=== PATIENT | female | born 2000 | race Caucasian/White ===

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

== ENCOUNTER 2020-10-16 16:25 | Emergency (ER) | payer SELFPAY ==
[~2020-10-16] VITALS: Ht 168 cm; Wt 79.5 kg
--- NOTE | 2020-10-16 16:36 | ED Abdominal Pain ---
General Chief Complaint: Abdominal/GI Problems Stated Complaint: ABD PAIN;CRAMPING Nursing Triage Note: Patient reports lower abdomen pain. Sepsis Screen: No Definite Risk Source of Information: Patient Exam Limitations: No Limitations History of Present Illness Date Seen by Provider: Oct 16, 2020 Time Seen by Provider: 16:33 Initial Comments To ER with reports of suprapubic abdominal pain and cramping sensation that began last night. The pain is midline and radiates all across the low abdomen. Walking and standing upright worsens the pain. No fevers or chills or nausea or vomiting. No diarrhea. No dysuria. She was seen at [facility] and had a urinalysis and test done she says, she says both of these were normal. She has had some vaginal discharge and she is sexually active. Timing/Duration: 12-24 Hours Severity/Quality: Moderate Location: Suprapubic Radiation: No Radiation Activities at Onset: None Modifying Factors: Worsens With Movement, Worsens With Palpation; Improves With Resting Associated Symptoms: Denies Symptoms Allergies and Home Medications Allergies Uncoded Allergies: PSEUDOEPHEDRINE (Adverse Reaction, Intermediate, 06/28/12) CAN NOT HAVE DUE TO HEART RELATED CONDITION Home Medications Aspirin 81 Mg Chew, 81 MG PO DAILY, (Reported) Cefdinir 300 Mg Capsule, 300 MG PO BID Prescribed by: PATRICIA MIRAMONTES on 01/01/18420 Methylprednisolone 4 Mg Tab.ds.pk, 4 MG PO UD Prescribed by: PATRICIA MIRAMNOTES on 01/01/18420 Metronidazole 500 Mg Tablet, 500 MG PO BID Prescribed by: VICENTE DING on 10/16/20 1757 Patient Home Medication List Home Medication List Reviewed: Yes Review of Systems Review of Systems Constitutional: see HPI; No chills, No fever EENTM: No Symptoms Reported Respiratory: No Symptoms Reported Cardiovascular: See HPI Gastrointestinal: See HPI, Abdominal Pain; Denies Constipated, Denies Diarrhea, Denies Nausea Genitourinary: No Symptoms Reported Musculoskeletal: no symptoms reported Skin: no symptoms reported Psychiatric/Neurological: No Symptoms Reported Endocrine: No Symptoms Reported Hematologic/Lymphatic: No Symptoms Reported Past Aavulpw-Aqqirn-Oomqch Hx Patient Social History Alcohol Use: Denies Use Recreational Drug Use: No 2nd Hand Smoke Exposure: No Recent Foreign Travel: No Contact w/Someone Who Travel: No Recent Infectious Disease Expo: No Recent Hopitalizations: No Immunizations Up To Date Tetanus Booster (TDap): Less than 5yrs PED Vaccines UTD: Yes Date of Pneumonia Vaccine: Jun 08, 2011 Seasonal Allergies Seasonal Allergies: Yes Past Medical History Surgeries: Yes (CARDIAC SURGERY X 2 FOR REPAIR OF TETRALOGY OF FALLOT INFANT; BMT'S) Cardiac, Ear Surgery Respiratory: No 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 0.2oz. 67.479211ns; 28.00 BMI Method:Stated General Appearance: WD/WN, no apparent distress HEENT: PERRL/EOMI, normal ENT inspection Respiratory: no respiratory distress, no accessory muscle use Gastrointestinal: normal bowel sounds, soft, tenderness Extremities: normal range of motion, non-tender Neurologic/Psychiatric: alert, normal mood/affect, oriented x 3 Skin: normal color, warm/dry Progress/Results/Core Measures Results/Orders Lab Results Laboratory Tests Test 10/16/20 16:30 10/16/20 16:49 10/16/20 17:57 Range/Units White Blood Count 13.3 H 4.3-11.0 10^3/uL Red Blood Count 5.36 H 3.80-5.11 10^6/uL Hemoglobin 14.0 11.5-16.0 g/dL Hematocrit 44 35-52 % Mean Corpuscular Volume 83 80-99 fL Mean Corpuscular Hemoglobin 26 25-34 pg Mean Corpuscular Hemoglobin Concent 32 32-36 g/dL Red Cell Distribution Width 14.1 10.0-14.5 % Platelet Count 325 130-400 10^3/uL Mean Platelet Volume 11.6 9.0-12.2 fL Immature Granulocyte % (Auto) 0 % Neutrophils (%) (Auto) 78 H 42-75 % Lymphocytes (%) (Auto) 10 L 12-44 % Monocytes (%) (Auto) 9 0-12 % Eosinophils (%) (Auto) 2 0-10 % Basophils (%) (Auto) 1 0-10 % Neutrophils # (Auto) 10.4 H 1.8-7.8 10^3/uL Lymphocytes # (Auto) 1.3 1.0-4.0 10^3/uL Monocytes # (Auto) 1.2 H 0.0-1.0 10^3/uL Eosinophils # (Auto) 0.3 0.0-0.3 10^3/uL Basophils # (Auto) 0.1 0.0-0.1 10^3/uL Immature Granulocyte # (Auto) 0.0 0.0-0.1 10^3/uL Sodium Level 135 135-145 MMOL/L Potassium Level 4.5 3.6-5.0 MMOL/L Chloride Level 103 98-107 MMOL/L Carbon Dioxide Level 19 L 21-32 MMOL/L Anion Gap 13 5-14 MMOL/L Blood Urea Nitrogen 10 7-18 MG/DL Creatinine 0.76 0.60-1.30 MG/DL Estimat Glomerular Filtration Rate > 60 BUN/Creatinine Ratio 13 Glucose Level 100 70-105 MG/DL Calcium Level 8.6 8.5-10.1 MG/DL Corrected Calcium 8.4 L 8.5-10.1 MG/DL Total Bilirubin 0.7 0.1-1.0 MG/DL Aspartate Amino Transf (AST/SGOT) 37 H 5-34 U/L Alanine Aminotransferase (ALT/SGPT) 22 0-55 U/L Alkaline Phosphatase 87 40-136 U/L C-Reactive Protein High Sensitivity 0.39 0.00-0.50 MG/DL Total Protein 8.1 6.4-8.2 GM/DL Albumin 4.2 3.2-4.5 GM/DL Serum Test, Qualitative NEGATIVE NEGATIVE Urine Color YELLOW Urine Clarity CLEAR Urine pH 6.5 5-9 Urine Specific [place] 1.015 L 1.016-1.022 Urine Protein NEGATIVE NEGATIVE Urine Glucose (UA) NEGATIVE NEGATIVE Urine Ketones NEGATIVE NEGATIVE Urine Nitrite NEGATIVE NEGATIVE Urine Bilirubin NEGATIVE NEGATIVE Urine Urobilinogen 1.0 < = 1.0 MG/DL Urine Leukocyte Esterase NEGATIVE NEGATIVE Urine RBC (Auto) NEGATIVE NEGATIVE Urine RBC NONE /HPF Urine WBC RARE /HPF Urine Squamous Epithelial Cells 5-10 /HPF Urine Crystals NONE /LPF Urine Bacteria TRACE /HPF Urine Casts NONE /LPF Urine Mucus NEGATIVE /LPF Urine Culture Indicated NO Micro Results Microbiology 10/16/20 Wet Prep - Final, Complete My Orders Orders - VICENTE DING APRN Cbc With Automated Diff (10/16/20 16:31) Comprehensive Metabolic Panel (10/16/20 16:31) Hs C Reactive Protein (10/16/20 16:31) Ed Iv/Invasive Line Start (10/16/20 16:31) Hcg,Qualitative Serum (10/16/20 16:31) Ct Abd/Pelv W (Appendicitis) (10/16/20 16:31) Ua Culture If Indicated (10/16/20 16:31) Ketorolac Injection (Toradol Injection) (10/16/20 16:45) Chlamydia Trachomatis Swab (10/16/20 16:31) Neisseria Gonorrhea Swab (10/16/20 16:31) Wet Prep (10/16/20 16:31) Iohexol Injection (Omnipaque 350 Mg/Ml 1 (10/16/20 17:00) Received Contrast (Hold Metformin- Contr (10/16/20 17:00) Ns (Ivpb) (Sodium Chloride 0.9% Ivpb Bag (10/16/20 17:00) Ceftriaxone For Iv Use (Rocephin For I (10/16/20 18:00) Azithromycin Tablet (Zithromax Tablet) (10/16/20 18:00) Rx-Hydrocodone/Apap 5-325 Mg (Rx-Vicodin (10/16/20 18:00) Gamma Glutamyl Transpeptidase (10/16/20 17:51) Protime With Inr (10/16/20 17:51) Liver Panel (10/16/20 17:51) Medications Given in ED Current Medications Medications Dose Ordered Sig/Jadiel Route Start Time Stop Time Status Last Admin Dose Admin Acetaminophen/ Hydrocodone Bitart 1 ea Q4H PRN PO 10/16/20 18:00 10/16/20 17:58 1 EA Ceftriaxone Sodium 1000 mg/ Sterile Water 10 ml @ 200 mls/hr ONCE ONCE IV 10/16/20 18:00 10/16/20 18:02 10/16/20 17:58 200 MLS/HR Iohexol 100 ml ONCE ONCE IV 10/16/20 17:00 10/16/20 17:01 DC 10/16/20 17:20 100 ML Ketorolac Tromethamine 15 mg ONCE ONCE IVP 10/16/20 16:45 10/16/20 16:46 DC 10/16/20 16:52 15 MG Sodium Chloride 100 ml ONCE ONCE IV 10/16/20 17:00 10/16/20 17:01 DC 10/16/20 17:20 80 ML Vital Signs/I&O 10/16/20 16:29 Temp 36.8 Pulse 99 Resp 18 B/P (MAP) 135/98 (110) Pulse Ox 99 Blood Pressure Mean: 110 Departure Communication (Admissions) NAME: EVANS [facility] REC#: [id number] PT STATUS: REG ER : 2000 PHYSICIAN: VICENTE DING NATUROPATHIC ONCOLOGY PROVIDER ADMIT DATE: 10/16/20/ER Draft Date of Exam:10/16/20 CT ABD/PELV W (APPENDICITIS) PROCEDURE: CT abdomen and pelvis with contrast, rule out appendicitis. TECHNIQUE: Multiple contiguous axial images were obtained through the abdomen and pelvis after the administration of intravenous contrast. All CT scans use one or more of the following dose optimizing techniques: automated exposure control, MA and/or KvP adjustment based on patient size and exam type or iterative reconstruction. INDICATION: Suprapubic pain. COMPARISON: No relevant comparison. FINDINGS: The appendix is well-visualized directed medially off the caudal pole of the cecum. It appears normal. There is no appendicitis. There is no bowel or urinary tract obstruction. There is a simple cyst in the right renal midpole. The kidneys are unobstructed, nonacute and otherwise normal. There is a right ovarian follicular cyst of 2 cm, likely physiologic. The urinary bladder has an unremarkable appearance. There is no ascites, abscess, hematoma or acute fluid collection. There is no pneumatosis or free air. The spleen is within the upper limits of normal for size and appears nonfocal. The liver has an abnormal appearance with some nodularity and undulation of its contour as well as features of periportal edema. Cirrhosis and hepatitis could not be excluded. Correlate with liver function studies. We note normal enhancement of the intrahepatic and extrahepatic portal veins, however, directional flow cannot be addressed at CT. The pancreas is unremarkable. The patient's lung bases are unremarkable. There is no bile duct dilatation. No discrete liver mass. We note azygos and hemiazygos veins extending into the upper abdomen with a patent cava. No basilar pleural fluid. IMPRESSION: 1. Normal appendix with unremarkable unobstructed urinary tracts and a likely physiologic right adnexal cyst with no acute adnexal pathology. 2. Abnormal appearance of the liver, its morphology raising the question of cirrhosis. The features of periportal edema can be seen in the setting of hepatitis. 3. No ascites and nonfocal normal size spleen. Dictated on workstation # [id number] Dict: 10/16/20 173 Trans: 10/16/201740 [facility] [id number] Interpreted by: JONATHAN ANDERS Electronically signed by: Impression Primary Impression: Abnormal CT of liver Additional Impressions: Pelvic pain Bacterial vaginosis Disposition: HOME, SELF-CARE Condition: Stable Departure-Patient Inst. Decision time for Depature: 17:45 Referrals: [facility] (PCP) Primary Care Physician ZAHIDA ARREDONDO APRN (Family) Primary Care Physician Patient Instructions: No Instuctions Given Add. Discharge Instructions: 1. See Mark Mc at [facility] next week on Monday at 10:40 am to obtain ultrasound of the liver to help further evaluate this abnormal appearance of the liver seen on CT. In the meantime take the antibiotics as directed for the pelvic infection. Return to ER for any worsening. Scripts Metronidazole (Metronidazole) 500 Mg Tablet 500 MG PO BID, #14 TAB 0 Refills Prov: VICENTE DING APRN 10/16/20 Copy Copies To 1: BAILEY PATEL PETER J APRN Oct 16, 2020 16:36
[2020-10-16 16:43] LABS: BASOPHILS # (AUTO) 0.1 10^3/uL (0.0-0.1); BASOPHILS % (AUTO) 1 % (0-10); EOSINOPHILS # (AUTO) 0.3 10^3/uL (0.0-0.3); EOSINOPHILS % (AUTO) 2 % (0-10); HEMATOCRIT 44 % (35-52); LYMPHOCYTES # (AUTO) 1.3 10^3/uL (1.0-4.0); LYMPHOCYTES % (AUTO) 10 % (12-44); MEAN CORPUSCULAR HEMOGLOBIN 26 pg (25-34); MEAN CORPUSCULAR HGB CONC 32 g/dL (32-36); MEAN CORPUSCULAR VOLUME 83 fL (80-99); MEAN PLATELET VOLUME 11.6 fL (9.0-12.2); MONOCYTES # (AUTO) 1.2 10^3/uL (0.0-1.0); MONOCYTES % (AUTO) 9 % (0-12); NEUTROPHILS # (AUTO) 10.4 10^3/uL (1.8-7.8); NEUTROPHILS % (AUTO) 78 % (42-75); PLATELET COUNT 325 10^3/uL (130-400); WHITE BLOOD COUNT 13.3 10^3/uL (4.3-11.0)
[2020-10-16] MEDS ORDERED: KETOROLAC 30 MG/ML VIAL IVP ONE (16:45)
[2020-10-16 16:54] LABS: ALBUMIN 4.2 GM/DL (3.2-4.5); CHLORIDE 103 MMOL/L (98-107); POTASSIUM 4.5 MMOL/L (3.6-5.0); SODIUM 135 MMOL/L (135-145)
[2020-10-16 16:56] LABS: CALCIUM 8.6 MG/DL (8.5-10.1)
[2020-10-16 16:57] LABS: GLUCOSE 100 MG/DL (70-105); TOTAL PROTEIN 8.1 GM/DL (6.4-8.2)
[2020-10-16 16:58] LABS: BILIRUBIN,URINE NEGATIVE (NEGATIVE); CLARITY,URINE CLEAR; COLOR,URINE YELLOW; GLUCOSE, URINE (UA) NEGATIVE (NEGATIVE); KETONES,URINE NEGATIVE (NEGATIVE); LEUKOCYTE ESTERASE ,URINE NEGATIVE (NEGATIVE); NITRITE,URINE NEGATIVE (NEGATIVE); PH,URINE 6.5 (5-9); PROTEIN,URINE NEGATIVE (NEGATIVE)
[2020-10-16 16:58] LABS: CARBON DIOXIDE 19 MMOL/L (21-32)
[2020-10-16 16:59] LABS: BILIRUBIN,TOTAL 0.7 MG/DL (0.1-1.0)
[2020-10-16 17:00] LABS: ALKALINE PHOSPHATASE 87 U/L (40-136); CREATININE SERUM 0.76 MG/DL (0.60-1.30); GFR ESTIMATED > 60
[2020-10-16] MEDS ORDERED: HOLD METFORMIN - RECEIVED CONTRAST 20 ML VIAL IV SCH (17:00)
[2020-10-16] MEDS ORDERED: IOHEXOL 350 MG/ML 100 ML (OMNIPAQUE 350) VIAL IV ONE (17:00)
[2020-10-16] MEDS ORDERED: NS 100 ML (IVPB) BAG IV ONE (17:00)
[2020-10-16 17:02] LABS: BUN/CREATININE RATIO 13
[2020-10-16 17:03] LABS: ALANINE AMINOTRANSFERASE 22 U/L (0-55)
[2020-10-16 17:08] LABS: BACTERIA,URINE TRACE /HPF; WBC,URINE RARE /HPF
--- NOTE | 2020-10-16 17:42 | Diagnostic Imaging Report ---
PROCEDURE: CT abdomen and pelvis with contrast, rule out appendicitis. TECHNIQUE: Multiple contiguous axial images were obtained through the abdomen and pelvis after the administration of intravenous contrast. All CT scans use one or more of the following dose optimizing techniques: automated exposure control, MA and/or KvP adjustment based on patient size and exam type or iterative reconstruction. INDICATION: Suprapubic pain. COMPARISON: No relevant comparison. FINDINGS: The appendix is well-visualized directed medially off the caudal pole of the cecum. It appears normal. There is no appendicitis. There is no bowel or urinary tract obstruction. There is a simple cyst in the right renal midpole. The kidneys are unobstructed, nonacute and otherwise normal. There is a right ovarian follicular cyst of 2 cm, likely physiologic. The urinary bladder has an unremarkable appearance. There is no ascites, abscess, hematoma or acute fluid collection. There is no pneumatosis or free air. The spleen is within the upper limits of normal for size and appears nonfocal. The liver has an abnormal appearance with some nodularity and undulation of its contour as well as features of periportal edema. Cirrhosis and hepatitis could not be excluded. Correlate with liver function studies. We note normal enhancement of the intrahepatic and extrahepatic portal veins, however, directional flow cannot be addressed at CT. The pancreas is unremarkable. The patient's lung bases are unremarkable. There is no bile duct dilatation. No discrete liver mass. We note azygos and hemiazygos veins extending into the upper abdomen with a patent cava. No basilar pleural fluid. IMPRESSION: 1. Normal appendix with unremarkable unobstructed urinary tracts and a likely physiologic right adnexal cyst with no acute adnexal pathology. 2. Abnormal appearance of the liver, its morphology raising the question of cirrhosis. The features of periportal edema can be seen in the setting of hepatitis. 3. No ascites and nonfocal normal size spleen. Dictated by: Dictated on workstation # [id number]
[2020-10-16] MEDS ORDERED: METR-145 PO (17:49)
[2020-10-16] MEDS ORDERED: cefTRIAXone FOR IV USE 1,000 MG in WATER (STERILE) FOR INJECTION 10 ML IV ONE (18:00)
[2020-10-16] MEDS ORDERED: AZITHROMYCIN 250 MG TAB (ZITHROMAX) PO SCH (18:00)
[2020-10-16] MEDS ORDERED: RX-HYDROCODONE/APAP 5/325 MG #4 TAB PK PO PRN (18:00)
[2020-10-16 18:06] VITALS: BP 135/98
[2020-10-16 18:13] LABS: INR 1.3 (0.8-1.4); PROTHROMBIN TIME PATIENT 16.3 SEC (12.2-14.7)
[2020-10-16 18:18] LABS: ALBUMIN 4.1 GM/DL (3.2-4.5)
[2020-10-16 18:21] LABS: TOTAL PROTEIN 7.1 GM/DL (6.4-8.2)
[2020-10-16 18:23] LABS: BILIRUBIN,TOTAL 0.6 MG/DL (0.1-1.0)
[2020-10-16 18:26] LABS: BILIRUBIN,DIRECT 0.3 MG/DL (0.0-0.3); BILIRUBIN,INDIRECT 0.3 MG/DL
== END 2020-10-16 18:05 | disposition home or self-care (01) ==
LOC: EDUNIT# 16:25 → ER 16:27
DX: R10.2 Pelvic and perineal pain (principal); N76.0 Acute vaginitis; R93.2 Abnormal findings on diagnostic imaging of liver and biliary tract; Z88.8 Allergy status to other drugs, medicaments and biological substances; Z79.52 Long term (current) use of systemic steroids; Z79.82 Long term (current) use of aspirin
CPT/HCPCS: 36415; 74177; 80053; 80076; 81000; 82977; 84703; 85025; 85610; 86141; 87210; 87491; 87591

== ENCOUNTER 2021-09-28 14:03 | Emergency (ER) | payer OTHER ==
[~2021-09-28] VITALS: Ht 167 cm; Wt 74.0 kg
[~2021-09-28 14:03] MED LIST changes: +METR-145 PO
[2021-09-28 14:10] VITALS: BP 143/92
[2021-09-28] MEDS ORDERED: PRD50T PO (14:26)
--- NOTE | 2021-09-28 14:26 | ED General ---
General Chief Complaint: Bite-Animal/Human/Insect Stated Complaint: ALLERGIC REACTION BEE STING Nursing Triage Note: ARRIVED VIA AMB WITH COMPLAINTS OF A BEE STING TO RIGHT HAND WHILE AT WORK. STATES SHE IMMEDIATELY BECAME FLUSHED AND HAD A HARD TIME BREATHING. 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 Source of Information: Patient Exam Limitations: No Limitations History of Present Illness Date Seen by Provider: Sep 28, 2021 Time Seen by Provider: 14:22 Initial Comments Patient is a 21-year-old female who presents ED with allergic reaction and bee sting. Patient states around 30 minutes ago she was stung by a bee at work. She states she was stung with the right hand with localized redness. Started having difficulty breathing. Patient states her work gave her 25 mg of Benadryl. She states that she did feel anxious and the breathing appears to be improving some. Denies of any wheezing, abdominal pain, vomiting, diarrhea, headache, dizziness. She reports localized pain and redness to her right hand. No history of bee stings in the past. Allergies and Home Medications Allergies Uncoded Allergies: PSEUDOEPHEDRINE (Adverse Reaction, Intermediate, 06/28/12) CAN NOT HAVE DUE TO HEART RELATED CONDITION Patient Home Medication List Home Medication List Reviewed: Yes Aspirin (Aspirin 81 Mg Chew Tab) 81 Mg Chew, 81 MG PO DAILY, (Reported) Entered as Reported by: HERBIE COOLEY on 05/31/11 1900 Cefdinir (Cefdinir) 300 Mg Capsule, 300 MG PO BID Prescribed by: PATRICIA MIRAMONTES on 01/01/18 042 Methylprednisolone (Medrol) 4 Mg Tab.ds.pk, 4 MG PO UD Prescribed by: PATRICIA MIRAMONTES on 01/01/18420 Metronidazole (Metronidazole) 500 Mg Tablet, 500 MG PO BID Prescribed by: VICENTE DING on 10/16/20 1749 Norgestimate-Ethinyl Estradiol (Mononessa 28 Tablet) 1 Each Tablet, (Reported) Entered as Reported by: ARTIS ORTIZ on 01/01/18 0258 Prednisone (Prednisone) 50 Mg Tab, 50 MG PO DAILY Prescribed by: YONG DONOHUE on 09/28/21 1426 Review of Systems Review of Systems Constitutional: No see HPI, No chills, No diaphoresis, No dizziness, No fever EENTM: No hearing loss, No ear pain Respiratory: No cough, No dyspnea on exertion, No hemoptysis, No orthopnea, No phlegm; short of breath Gastrointestinal: No abdominal pain, No constipation, No diarrhea, No dysphagia Skin: change in color, rash Psychiatric/Neurological: Denies See HPI, Denies Anxiety All Other Systems Reviewed Negative Unless Noted: Yes Past Rstbosh-Seqspp-Gfqetf Hx Patient Social History Smoking Status: Never a Smoker Substance use?: No Alcohol Use?: No Immunizations Up To Date Tetanus Booster (TDap): Less than 5yrs PED Vaccines UTD: Yes Seasonal Allergies Seasonal Allergies: Yes Past Medical History Surgeries: Yes (CARDIAC SURGERY X 2 FOR REPAIR OF TETRALOGY OF FALLOT INFANT; BMT'S) Cardiac, Ear Surgery Respiratory: No 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 0.2oz. [id number]; 26.00 BMI Method:Stated General Appearance: No Apparent Distress, WD/WN Eyes: Bilateral Eye Normal Inspection, Bilateral Eye PERRL, Bilateral Eye EOMI HEENT: PERRL/EOMI, TMs Normal, Normal ENT Inspection, Pharynx Normal Neck: Full Range of Motion, Normal Inspection, Non Tender Respiratory: Chest Non Tender, Lungs Clear, Normal Breath Sounds, No Accessory Muscle Use, No Respiratory Distress Cardiovascular: Regular Rate, Rhythm, No Edema, No Gallop, No JVD Gastrointestinal: No Organomegaly, No Pulsatile Mass, Non Tender Back: Normal Inspection, No CVA Tenderness Skin: Other (Localized erythema to right dorsal hand. Mild swelling. No fluctuant mass.) Progress/Results/Core Measures Suspected Sepsis SIRS Temperature: Pulse: 98 Respiratory Rate: 16 Blood Pressure 143 /92 Mean: 109 Results/Orders My Orders Orders - ANTON GE Prednisone Tablet (Deltasone Tablet) (09/28/21 14:30) Famotidine Tablet (Pepcid Tablet) (09/28/21 14:30) Medications Given in ED Current Medications Medications Dose Ordered Sig/Jadiel Route Start Time Stop Time Status Last Admin Dose Admin Famotidine 40 mg ONCE ONCE PO 09/28/21 14:30 09/28/21 14:31 DC 09/28/21 14:25 40 MG Prednisone 50 mg ONCE ONCE PO 09/28/21 14:30 09/28/21 14:31 DC 09/28/21 14:26 50 MG Vital Signs/I&O 09/28/21 09/28/21 14:10 14:54 Temp 36.3 Pulse 98 Resp 16 B/P (MAP) 143/92 (109) Pulse Ox 95 95 O2 Delivery Room Air Room Air Capillary Refill : Less Than 3 Seconds Blood Pressure Mean: 109 Departure Communication (Admissions) Patient appears well and nontoxic. Localized sting to right hand. Does not appear cellulitic. Lung sounds clear bilateral. No stridor, wheezing. Vital signs stable. Was given dose of prednisone and Pepcid. She took Benadryl right before arrival. No evidence of anaphylaxis. Patient was observed here in the ED. Will discharge with prednisone. She has Benadryl at home Impression Primary Impression: Bee sting Disposition: 01 HOME, SELF-CARE Condition: Improved Departure-Patient Inst. Decision time for Depature: 14:24 Referrals: [facility] [place] Primary Care Physician ZAHIDA ARREDONDO APRN (Family) Primary Care Physician Patient Instructions: Insect Bites and Stings (DC) Add. Discharge Instructions: Recommend cool compresses to the right hand. Recommend Benadryl 25 mg every 6-8 hours until rash improves. Finish prednisone. If worsening symptoms return back to ED for further evaluation. All discharge instructions reviewed with patient and/or family. Voiced u nderstanding. Scripts Prednisone (Prednisone) 50 Mg Tab 50 MG PO DAILY for 4 Days, #4 TAB Prov: ANTON GE 09/28/21 ANTON GE Sep 28, 2021 14:26
[2021-09-28] MEDS ORDERED: FAMOTIDINE 20 MG (PEPCID) TABLET PO ONE (14:30)
[2021-09-28] MEDS ORDERED: predniSONE 20 MG TAB PO ONE (14:30)
== END 2021-09-28 14:54 | disposition home or self-care (01) ==
LOC: EDUNIT# 14:03 → ER 14:05
DX: T63.441A Toxic effect of venom of bees, accidental (unintentional), initial encounter (principal); Z79.82 Long term (current) use of aspirin
CPT/HCPCS: 99283

== ENCOUNTER 2022-02-04 12:16 | Emergency (ER) | payer BC, OTHER ==
[~2022-02-04] VITALS: Ht 167.7 cm; Wt 74.8 kg
[~2022-02-04 12:16] MED LIST changes: +PRD50T PO
[2022-02-04] MEDS ORDERED: LORazepam 0.5 MG (ATIVAN) TABLET PO ONE (13:00)
--- NOTE | 2022-02-04 13:11 | ED General ---
General Chief Complaint: Dizziness/Syncope Stated Complaint: LIGHTHEADED Source of Information: Patient Exam Limitations: No Limitations (VICENTE DING APRN) History of Present Illness Date Seen by Provider: Feb 04, 2022 Time Seen by Provider: 13:09 Initial Comments To ER by private vehicle with reports of sudden onset of jitteriness, anxiety, chest pain, lightheaded that occurred just prior to arrival while at [employer] shopping. She has had some nausea and not feeling quite right for a couple of days. No fevers chills or shortness of breath. She is on a baby aspirin daily. She has a history of tetralogy of Fallot s/p surgery x2. She takes vistaril for anxiety daily. Timing/Duration: 1-2 Days Severity: Moderate Associated Systoms: Nausea/Vomiting (VICENTE DING APRN) Allergies and Home Medications Allergies Uncoded Allergies: PSEUDOEPHEDRINE (Adverse Reaction, Intermediate, 06/28/12) CAN NOT HAVE DUE TO HEART RELATED CONDITION Patient Home Medication List Home Medication List Reviewed: Yes (VICENTE DING APRN) Aspirin (Aspirin 81 Mg Chew Tab) 81 Mg Chew, 81 MG PO DAILY, (Reported) Entered as Reported by: HERBIE COOLEY on 05/31/11 1900 Cefdinir (Cefdinir) 300 Mg Capsule, 300 MG PO BID Prescribed by: PATRICIA MIRAMONTES on 01/01/18420 Escitalopram Oxalate (Lexapro) 10 Mg Tablet, 10 MG PO DAILY Prescribed by: VICENTE DING on 02/04/22 1358 Last Action: New Order Methylprednisolone (Medrol) 4 Mg Tab.ds.pk, 4 MG PO UD Prescribed by: PATRICIA MIRAMONTES on 01/01/18 042 Metronidazole (Metronidazole) 500 Mg Tablet, 500 MG PO BID Prescribed by: VICENTE DNIG on 10/16/20 1749 Norgestimate-Ethinyl Estradiol (Mononessa 28 Tablet) 1 Each Tablet, (Reported) Entered as Reported by: ARTIS ORTIZ on 01/01/18 0258 Prednisone (Prednisone) 50 Mg Tab, 50 MG PO DAILY Prescribed by: YONG DONOHUE on 09/28/21 1426 Review of Systems Review of Systems Constitutional: see HPI EENTM: see HPI Respiratory: no symptoms reported Cardiovascular: no symptoms reported Genitourinary: no symptoms reported Musculoskeletal: no symptoms reported Skin: no symptoms reported Psychiatric/Neurological: See HPI, Anxiety Hematologic/Lymphatic: No Symptoms Reported (VICENTE DING APRN) Past Pjyvpda-Kkoefx-Vsuvmy Hx Immunizations Up To Date Tetanus Booster (TDap): Less than 5yrs PED Vaccines UTD: Yes (VICENTE DING APRN) Seasonal Allergies Seasonal Allergies: Yes (VICENTE DING APRN) Past Medical History Surgeries: Yes (CARDIAC SURGERY X 2 FOR REPAIR OF TETRALOGY OF FALLOT INFANT; BMT'S) Cardiac, Ear Surgery Respiratory: No Cardiac: Yes (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) Congenital Heart Disease Neurological: No Reproductive Disorders: No Genitourinary: No Gastrointestinal: Yes Chronic Constipation Musculoskeletal: No Endocrine: No HEENT: Yes (S/P BMT'S) Chronic Ear Infection Cancer: No Psychosocial: No Integumentary: No Blood Disorders: No (VICENTE DING APRN) Family Medical History No Pertinent Family Hx (VICENTE DING APRN) Physical Exam Vital Signs Vital Signs - First Documented 02/04/22 02/04/22 12:52 14:03 Temp 36.0 Pulse 93 Resp 18 B/P (MAP) 119/82 (94) Pulse Ox 100 O2 Delivery Room Air (DAVID GALLO MD) Vital Signs Capillary Refill : (VICENTE DING APRN) Height, Weight, BMI Height: 5'5.00" Weight: 148lbs. 0.2oz. [id number]; 26.00 BMI Method:Stated General Appearance: No Apparent Distress, WD/WN Eyes: Bilateral Eye Normal Inspection, Bilateral Eye PERRL, Bilateral Eye EOMI Neck: Full Range of Motion, Normal Inspection Respiratory: No Accessory Muscle Use, No Respiratory Distress Cardiovascular: Regular Rate, Rhythm, Normal Peripheral Pulses Gastrointestinal: Normal Bowel Sounds, Non Tender, Soft Extremity: Normal Capillary Refill, Normal Inspection Neurologic/Psychiatric: Alert, Oriented x3 Skin: Normal Color, Warm/Dry (VICENTE DING APRN) Progress/Results/Core Measures Suspected Sepsis SIRS Temperature: Pulse: Respiratory Rate: Laboratory Tests 02/04/22 13:07: White Blood Count 8.9 Blood Pressure / Mean: Laboratory Tests 02/04/22 13:07: Creatinine 0.79, Platelet Count 220, Total Bilirubin 1.0 (VICENTE DING APRN) Results/Orders Lab Results Laboratory Tests Test 02/04/22 13:07 Range/Units White Blood Count 8.9 4.3-11.0 10^3/uL Red Blood Count 6.01 H 3.80-5.11 10^6/uL Hemoglobin 15.6 11.5-16.0 g/dL Hematocrit 48 35-52 % Mean Corpuscular Volume 80 80-99 fL Mean Corpuscular Hemoglobin 26 25-34 pg Mean Corpuscular Hemoglobin Concent 32 32-36 g/dL Red Cell Distribution Width 15.0 H 10.0-14.5 % Platelet Count 220 130-400 10^3/uL Mean Platelet Volume 10.5 9.0-12.2 fL Immature Granulocyte % (Auto) 0 % Neutrophils (%) (Auto) 78 H 42-75 % Lymphocytes (%) (Auto) 11 L 12-44 % Monocytes (%) (Auto) 8 0-12 % Eosinophils (%) (Auto) 3 0-10 % Basophils (%) (Auto) 1 0-10 % Neutrophils # (Auto) 6.9 1.8-7.8 10^3/uL Lymphocytes # (Auto) 1.0 1.0-4.0 10^3/uL Monocytes # (Auto) 0.7 0.0-1.0 10^3/uL Eosinophils # (Auto) 0.3 0.0-0.3 10^3/uL Basophils # (Auto) 0.1 0.0-0.1 10^3/uL Immature Granulocyte # (Auto) 0.0 0.0-0.1 10^3/uL Urine Color YELLOW Urine Clarity CLEAR Urine pH 7.0 5-9 Urine Specific [place] <=1.005 1.016-1.022 Urine Protein NEGATIVE NEGATIVE Urine Glucose (UA) NEGATIVE NEGATIVE Urine Ketones NEGATIVE NEGATIVE Urine Nitrite NEGATIVE NEGATIVE Urine Bilirubin NEGATIVE NEGATIVE Urine Urobilinogen 0.2 < = 1.0 MG/DL Urine Leukocyte Esterase NEGATIVE NEGATIVE Urine RBC (Auto) NEGATIVE NEGATIVE Urine RBC NONE /HPF Urine WBC NONE /HPF Urine Squamous Epithelial Cells 0-2 /HPF Urine Crystals NONE /LPF Urine Bacteria TRACE /HPF Urine Casts NONE /LPF Urine Mucus NEGATIVE /LPF Urine Culture Indicated NO Sodium Level 137 135-145 MMOL/L Potassium Level 3.8 3.6-5.0 MMOL/L Chloride Level 105 98-107 MMOL/L Carbon Dioxide Level 19 L 21-32 MMOL/L Anion Gap 13 5-14 MMOL/L Blood Urea Nitrogen 12 7-18 MG/DL Creatinine 0.79 0.60-1.30 MG/DL Estimat Glomerular Filtration Rate 109 BUN/Creatinine Ratio 15 Glucose Level 90 70-105 MG/DL Calcium Level 10.2 H 8.5-10.1 MG/DL Corrected Calcium 8.5-10.1 MG/DL Total Bilirubin 1.0 0.1-1.0 MG/DL Aspartate Amino Transf (AST/SGOT) 26 5-34 U/L Alanine Aminotransferase (ALT/SGPT) 29 0-55 U/L Alkaline Phosphatase 93 40-136 U/L Total Protein 8.7 H 6.4-8.2 GM/DL Albumin 4.9 H 3.2-4.5 GM/DL Serum Test, Qualitative NEGATIVE NEGATIVE Urine Opiates Screen NEGATIVE NEGATIVE Urine Oxycodone Screen NEGATIVE NEGATIVE Urine Methadone Screen NEGATIVE NEGATIVE Urine Propoxyphene Screen NEGATIVE NEGATIVE Urine Barbiturates Screen NEGATIVE NEGATIVE Ur Tricyclic Antidepressants Screen NEGATIVE NEGATIVE Urine Phencyclidine Screen NEGATIVE NEGATIVE Urine Amphetamines Screen NEGATIVE NEGATIVE Urine Methamphetamines Screen NEGATIVE NEGATIVE Urine Benzodiazepines Screen NEGATIVE NEGATIVE Urine Cocaine Screen NEGATIVE NEGATIVE Urine Cannabinoids Screen NEGATIVE NEGATIVE (DAVID GALLO MD) Medications Given in ED Current Medications Medications Dose Ordered Sig/Jadiel Route Start Time Stop Time Status Last Admin Dose Admin Lorazepam 0.5 mg ONCE ONCE PO 02/04/22 13:00 02/04/22 13:01 DC 02/04/22 13:08 0.5 MG (DAVID GALLO MD) Vital Signs/I&O 02/04/22 02/04/22 12:52 14:03 Temp 36.0 Pulse 93 86 Resp 18 20 B/P (MAP) 119/82 (94) 119/76 Pulse Ox 100 O2 Delivery Room Air Room Air (DAVID GALLO MD) Vital Signs/I&O Capillary Refill : (VICENTE DING APRN) Departure Communication (Admissions) [id number]-[id number] that she feels better at this time. She also appears better, less fidgety and anxious. She tells me that she did self discontinue her Paxil about a month ago because it was giving her bad dreams. She took it for anxiety and depression but states that she does not really have much depression only daily anxiety. I did offer to start her on some Lexapro to see if that would be bett er tolerated and help with her anxiety. She would like to try this. I will send it into [facility]. (VICENTE DING APRN) Impression Primary Impression: Nausea Additional Impressions: Anxiety General ill feeling Disposition: 01 HOME, SELF-CARE Condition: Stable Departure-Patient Inst. Decision time for Depature: 13:40 (VICENTE DING APRN) Referrals: [facility] [place] (PCP/Family) Primary Care Physician Patient Instructions: NO INSTRUCTIONS GIVEN Add. Discharge Instructions: All discharge instructions reviewed with patient and/or family. Voiced understanding. Scripts Escitalopram Oxalate (Lexapro) 10 Mg Tablet 10 MG PO DAILY, #30 TAB 1 Refill Prov: VICENTE DING APRN 02/04/22 ATTENDING PHYSICIAN NOTE: I was physically present as attending physician in the emergency department during the care of this patient, but I was not directly involved in the decision making or delivery of care for this patient. (DAVID GALLO MD) VICENTE DING APRN Feb 04, 2022 13:11 DAVID GALLO MD Feb 04, 2022 19:42
[2022-02-04 13:17] LABS: BASOPHILS # (AUTO) 0.1 10^3/uL (0.0-0.1); BASOPHILS % (AUTO) 1 % (0-10); EOSINOPHILS # (AUTO) 0.3 10^3/uL (0.0-0.3); EOSINOPHILS % (AUTO) 3 % (0-10); HEMATOCRIT 48 % (35-52); HEMOGLOBIN 15.6 g/dL (11.5-16.0); LYMPHOCYTES % (AUTO) 11 % (12-44); MEAN CORPUSCULAR HEMOGLOBIN 26 pg (25-34); MEAN CORPUSCULAR HGB CONC 32 g/dL (32-36); MEAN CORPUSCULAR VOLUME 80 fL (80-99); MEAN PLATELET VOLUME 10.5 fL (9.0-12.2); MONOCYTES # (AUTO) 0.7 10^3/uL (0.0-1.0); MONOCYTES % (AUTO) 8 % (0-12); NEUTROPHILS # (AUTO) 6.9 10^3/uL (1.8-7.8); NEUTROPHILS % (AUTO) 78 % (42-75); PLATELET COUNT 220 10^3/uL (130-400); WHITE BLOOD COUNT 8.9 10^3/uL (4.3-11.0)
[2022-02-04 13:22] LABS: ALBUMIN 4.9 GM/DL (3.2-4.5)
[2022-02-04 13:23] LABS: CHLORIDE 105 MMOL/L (98-107); POTASSIUM 3.8 MMOL/L (3.6-5.0); SODIUM 137 MMOL/L (135-145)
[2022-02-04 13:24] LABS: CALCIUM 10.2 MG/DL (8.5-10.1)
[2022-02-04 13:25] LABS: GLUCOSE 90 MG/DL (70-105); TOTAL PROTEIN 8.7 GM/DL (6.4-8.2)
[2022-02-04 13:26] LABS: CARBON DIOXIDE 19 MMOL/L (21-32)
[2022-02-04 13:28] LABS: ALKALINE PHOSPHATASE 93 U/L (40-136)
[2022-02-04 13:29] LABS: CREATININE SERUM 0.79 MG/DL (0.60-1.30); GFR ESTIMATED 109
[2022-02-04 13:30] LABS: BUN/CREATININE RATIO 15
[2022-02-04 13:31] LABS: BILIRUBIN,URINE NEGATIVE (NEGATIVE); CLARITY,URINE CLEAR; COLOR,URINE YELLOW; GLUCOSE, URINE (UA) NEGATIVE (NEGATIVE); KETONES,URINE NEGATIVE (NEGATIVE); LEUKOCYTE ESTERASE ,URINE NEGATIVE (NEGATIVE); NITRITE,URINE NEGATIVE (NEGATIVE); PROTEIN,URINE NEGATIVE (NEGATIVE)
[2022-02-04 13:32] LABS: ALANINE AMINOTRANSFERASE 29 U/L (0-55)
[2022-02-04 13:35] LABS: AMPHETAMINE SCREEN, URINE NEGATIVE (NEGATIVE); BARBITURATE SCREEN URINE NEGATIVE (NEGATIVE); BENZODIAZEPINES SCREEN URINE NEGATIVE (NEGATIVE); CANNABINOID SCREEN, URINE NEGATIVE (NEGATIVE); COCAINE SCREEN URINE NEGATIVE (NEGATIVE); METHADONE STAT NEGATIVE (NEGATIVE); METHAMPHETAMINE SCREEN URINE S NEGATIVE (NEGATIVE); OPIATE SCREEN URINE NEGATIVE (NEGATIVE); OXYCODONE STAT NEGATIVE (NEGATIVE); PROPOXYPHENE STAT NEGATIVE (NEGATIVE); TRICYCLIC ANTIDEPRESSANTS SCRE NEGATIVE (NEGATIVE)
[2022-02-04 13:38] LABS: BACTERIA,URINE TRACE /HPF; SQUAMOUS EPITHELIAL CELL,UR 0-2 /HPF
[2022-02-04] MEDS ORDERED: ESCI10TA PO (13:58)
[2022-02-04 14:03] VITALS: BP 119/76
== END 2022-02-04 14:03 | disposition home or self-care (01) ==
LOC: EDUNIT# 12:16 → ER 12:18
DX: F41.9 Anxiety disorder, unspecified (principal); R11.2 Nausea with vomiting, unspecified; Z32.02 Encounter for pregnancy test, result negative
CPT/HCPCS: 36415; 80053; 80306; 81000; 84703; 85025; 93005

== ENCOUNTER 2022-03-23 22:39 | Emergency (ER) | payer BC ==
[~2022-03-23] VITALS: Ht 167.7 cm; Wt 74.8 kg
[~2022-03-23 22:39] MED LIST changes: +ESCI10TA PO
[2022-03-23 23:11] LABS: BILIRUBIN,URINE NEGATIVE (NEGATIVE); CLARITY,URINE CLEAR; COLOR,URINE YELLOW; GLUCOSE, URINE (UA) NEGATIVE (NEGATIVE); KETONES,URINE NEGATIVE (NEGATIVE); LEUKOCYTE ESTERASE ,URINE NEGATIVE (NEGATIVE); NITRITE,URINE NEGATIVE (NEGATIVE); PH,URINE 7.5 (5-9); PROTEIN,URINE NEGATIVE (NEGATIVE)
[2022-03-23 23:18] LABS: BACTERIA,URINE TRACE /HPF; WBC,URINE RARE /HPF
[2022-03-23 23:19] LABS: SQUAMOUS EPITHELIAL CELL,UR 0-2 /HPF
[2022-03-23] MEDS ORDERED: NS IV 1000 ML 1,000 ML IV SCH (23:30)
[2022-03-23 23:31] LABS: BASOPHILS # (AUTO) 0.1 10^3/uL (0.0-0.1); BASOPHILS % (AUTO) 1 % (0-10); EOSINOPHILS # (AUTO) 0.2 10^3/uL (0.0-0.3); EOSINOPHILS % (AUTO) 2 % (0-10); HEMATOCRIT 43 % (35-52); HEMOGLOBIN 14.1 g/dL (11.5-16.0); LYMPHOCYTES # (AUTO) 1.2 10^3/uL (1.0-4.0); LYMPHOCYTES % (AUTO) 14 % (12-44); MEAN CORPUSCULAR HEMOGLOBIN 26 pg (25-34); MEAN CORPUSCULAR HGB CONC 33 g/dL (32-36); MEAN CORPUSCULAR VOLUME 79 fL (80-99); MEAN PLATELET VOLUME 10.2 fL (9.0-12.2); MONOCYTES # (AUTO) 0.5 10^3/uL (0.0-1.0); MONOCYTES % (AUTO) 6 % (0-12); NEUTROPHILS # (AUTO) 6.8 10^3/uL (1.8-7.8); NEUTROPHILS % (AUTO) 78 % (42-75); PLATELET COUNT 266 10^3/uL (130-400); WHITE BLOOD COUNT 8.7 10^3/uL (4.3-11.0)
--- NOTE | 2022-03-23 23:31 | ED Syncope ---
General Chief Complaint: Dizziness/Syncope Stated Complaint: SHAKING, BLURED VISON, DIZZY Nursing Triage Note: PT TO ROOM 7 BY WHEELCHAIR BY FAMILY. PT STATES SHE IS EXPERIENCING DIZZINESS AND BLURRED VISION STARTING AT 1800. PT STATES "FEELS LIKE I AM GOING TO PASS OUT AND THEN I GET ANXIOUS AND SNAP OUT OF IT." Source of Information: Patient Exam Limitations: No Limitations History of Present Illness Date Seen by Provider: March 23, 2022 Time Seen by Provider: 23:14 Initial Comments Patient to the ER by private conveyance from home with her significant other chi ef complaint that since about 6:00 tonight, 5 hours ago she started getting dizzy lightheaded not made worse by positional changes. She says even laying flat she feels like she could pass out. She has not actually passed out nor has she fallen. No trauma. She has a history of tetralogy of Fallot but does not take any diuretics. She was having a little midline chest discomfort several hours ago. She is not having any edema or shortness of air. She is not having any nausea or sweats, fever or constipation. 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 She takes dicyclomine as needed but has been under good control for the past couple months. She also started Lexapro a couple months ago for anxiety attacks and thought maybe that was contributing to it. She takes an aspirin daily. Allergies and Home Medications Allergies Uncoded Allergies: PSEUDOEPHEDRINE (Adverse Reaction, Intermediate, 06/28/12) CAN NOT HAVE DUE TO HEART RELATED CONDITION Patient Home Medication List Home Medication List Reviewed: Yes Aspirin (Aspirin 81 Mg Chew Tab) 81 Mg Chew, 81 MG PO DAILY, (Reported) Entered as Reported by: HERBIE COOLEY on 05/31/11 1900 Azithromycin (Azithromycin) 250 Mg Tablet, 250 MG PO UD Prescribed by: STEPH SOMERS on 03/24/22 1835 Cefdinir (Cefdinir) 300 Mg Capsule, 300 MG PO BID Prescribed by: PATRICIA MIRAMONTES on 01/01/18 0421 Escitalopram Oxalate (Lexapro) 10 Mg Tablet, 10 MG PO DAILY Prescribed by: VICENTE DING on 02/04/22 1358 Methylprednisolone (Medrol) 4 Mg Tab.ds.pk, 4 MG PO UD Prescribed by: PATRICIA MIRAMONTES on 01/01/18 0421 Metronidazole (Metronidazole) 500 Mg Tablet, 500 MG PO BID Prescribed by: VICENTE DING on 10/16/20 1749 Norgestimate-Ethinyl Estradiol (Mononessa 28 Tablet) 1 Each Tablet, (Reported) Entered as Reported by: ARTIS ORTIZ on 01/01/18 0258 Prednisone (Prednisone) 50 Mg Tab, 50 MG PO DAILY Prescribed by: YONG DONOHUE on 09/28/21 1426 Review of Systems Constitutional: No chills, No fever, No malaise EENTM: No ear discharge, No ear pain Respiratory: No cough, No short of breath Cardiovascular: No chest pain, No palpitations Gastrointestinal: No abdominal pain, No constipation; diarrhea Genitourinary: No dysuria, No frequency : No Musculoskeletal: No back pain, No joint pain All Other Systems Reviewed Negative Unless Noted: Yes Past Bqdwnjk-Fjyvqa-Wfcqbv Hx Patient Social History Tobacco Use?: No Smoking Status: Never a Smoker Substance use?: No Alcohol Use?: No Immunizations Up To Date Tetanus Booster (TDap): Less than 5yrs PED Vaccines UTD: Yes Influenza Vaccine Up-to-Date: No; Not Current Seasonal Allergies Seasonal Allergies: Yes Past Medical History Surgeries: Yes (CARDIAC SURGERY X 2 FOR REPAIR OF TETRALOGY OF FALLOT ; BMT'S) Cardiac, Ear Surgery Respiratory: No Cardiac: Yes (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 0.2oz. 67.023226el; 26.00 BMI Method:Stated General Appearance: No Apparent Distress, WD/WN HEENT: PERRL/EOMI; No Pharynx Normal, No Moist Mucous Membranes Neck: Full Range of Motion, Normal Inspection Cardiovascular: Regular Rate, Rhythm, No Edema, Normal Peripheral Pulses Respiratory: No Accessory Muscle Use, No Respiratory Distress Gastrointestinal: Normal Bowel Sounds, No Organomegaly, Soft, Tenderness (Left lower abdomen and suprapubic) Extremities: Normal Capillary Refill, Normal Inspection Neurologic/Psychiatric: Alert, Oriented x3 Cranial Nerves: Normal Hearing, Normal Speech, PERRL Motor/Sensory: No Motor Deficit, No Sensory Deficit Skin: Normal Color, Warm/Dry Progress/Results/Core Measures Results/Orders Lab Results Laboratory Tests Test 03/23/22 22:55 03/23/22 23:00 Range/Units White Blood Count 8.7 4.3-11.0 10^3/uL Red Blood Count 5.42 H 3.80-5.11 10^6/uL Hemoglobin 14.1 11.5-16.0 g/dL Hematocrit 43 35-52 % Mean Corpuscular Volume 79 L 80-99 fL Mean Corpuscular Hemoglobin 26 25-34 pg Mean Corpuscular Hemoglobin Concent 33 32-36 g/dL Red Cell Distribution Width 13.4 10.0-14.5 % Platelet Count 266 130-400 10^3/uL Mean Platelet Volume 10.2 9.0-12.2 fL Immature Granulocyte % (Auto) 0 % Neutrophils (%) (Auto) 78 H 42-75 % Lymphocytes (%) (Auto) 14 12-44 % Monocytes (%) (Auto) 6 0-12 % Eosinophils (%) (Auto) 2 0-10 % Basophils (%) (Auto) 1 0-10 % Neutrophils # (Auto) 6.8 1.8-7.8 10^3/uL Lymphocytes # (Auto) 1.2 1.0-4.0 10^3/uL Monocytes # (Auto) 0.5 0.0-1.0 10^3/uL Eosinophils # (Auto) 0.2 0.0-0.3 10^3/uL Basophils # (Auto) 0.1 0.0-0.1 10^3/uL Immature Granulocyte # (Auto) 0.0 0.0-0.1 10^3/uL Sodium Level 135 135-145 MMOL/L Potassium Level 3.4 L 3.6-5.0 MMOL/L Chloride Level 104 98-107 MMOL/L Carbon Dioxide Level 18 L 21-32 MMOL/L Anion Gap 13 5-14 MMOL/L Blood Urea Nitrogen 11 7-18 MG/DL Creatinine 0.77 0.60-1.30 MG/DL Estimat Glomerular Filtration Rate 112 BUN/Creatinine Ratio 14 Glucose Level 114 H 70-105 MG/DL Calcium Level 9.6 8.5-10.1 MG/DL Corrected Calcium 9.2 8.5-10.1 MG/DL Total Bilirubin 0.7 0.1-1.0 MG/DL Aspartate Amino Transf (AST/SGOT) 15 5-34 U/L Alanine Aminotransferase (ALT/SGPT) 16 0-55 U/L Alkaline Phosphatase 82 40-136 U/L Troponin I < 0.028 <0.028 NG/ML C-Reactive Protein High Sensitivity 0.16 0.00-0.50 MG/DL Total Protein 8.1 6.4-8.2 GM/DL Albumin 4.5 3.2-4.5 GM/DL Urine Color YELLOW Urine Clarity CLEAR Urine pH 7.5 5-9 Urine Specific [place] <=1.005 1.016-1.022 Urine Protein NEGATIVE NEGATIVE Urine Glucose (UA) NEGATIVE NEGATIVE Urine Ketones NEGATIVE NEGATIVE Urine Nitrite NEGATIVE NEGATIVE Urine Bilirubin NEGATIVE NEGATIVE Urine Urobilinogen 0.2 < = 1.0 MG/DL Urine Leukocyte Esterase NEGATIVE NEGATIVE Urine RBC (Auto) NEGATIVE NEGATIVE Urine RBC NONE /HPF Urine WBC RARE /HPF Urine Squamous Epithelial Cells 0-2 /HPF Urine Crystals NONE /LPF Urine Bacteria TRACE /HPF Urine Casts NONE /LPF Urine Mucus NEGATIVE /LPF Urine Culture Indicated NO My Orders Orders - STEPH SOMERS Ua Culture If Indicated (03/23/22 22:44) Urine Bedside (03/23/22 22:44) Ed Iv/Invasive Line Start (03/23/22 23:25) Ns Iv 1000 Ml (Sodium Chloride 0.9%) (03/23/22 23:30) Cbc With Automated Diff (03/23/22 23:25) Comprehensive Metabolic Panel (03/23/22 23:25) Hs C Reactive Protein (03/23/22 23:25) Troponin I Terrie (03/23/22 23:25) Continuous Ekg Monitoring (03/23/22 23:25) Ekg Tracing (03/23/22 23:25) Chest 1 View, Ap/Pa Only (03/23/22 23:25) Vital Signs/I&O 5/4/22 5/4/22 5/5/22 23:07 23:58 00:54 Temp 36.4 36.4 Pulse 85 56 61 65 68 B/P (MAP) 130/88 (102) 113/63 (80) 121/78 116/77 (90) 116/82 (93) Pulse Ox 95 95 O2 Delivery Room Air Room Air Blood Pressure Mean: 102 Progress Progress Note #1: Time: 23:31 Progress Note EKG, chest x-ray, labs, troponin, orthostatic vital signs and a liter of fluids. Differential includes dehydration, vasovagal, anxiety, etc. Progress Note #2: Time: 00:42 Progress Note 1 points: [place] Syncope Risk Score. Medium risk; 3.1% risk of 30-day serious adverse event. Orthostatic vital signs normal. After the bag of fluids the patient states she feels significantly improved. We will let her go home and follow-up with her director of parks and recreation. Progress Note #3: Time: 18:35 Progress Note Follow-up conversation by phone to discuss the findings on her x-ray as read out by the radiologist indicating a possible infiltrate. The patient says she does have an occasional nonproductive cough. Viral versus atypical pneumonia are considered so we discussed doing some azithromycin. Patient states she feels much better today than she did earlier. Return precautions were given. Initial ECG Impression Date: March 23, 2022 Initial ECG Impression Time: 23:30 Initial ECG Rate: 79 Initial ECG Rhythm: Normal Sinus Initial ECG Intervals: Normal Initial ECG Impression: Normal Comment Normal sinus rhythm without clinically relevant ST elevation or depression. Diagnostic Imaging Diagonstic Imaging: Xray Plain Films/CT/US/NM/MRI: chest Comments [facility] [place], [place] NAME: EVANS ELIZALDE Tenzin [facility] REC#: [id number] PT STATUS: DEP ER : 2000 PHYSICIAN: STEPH SOMERS MD ADMIT DATE: 03/23/22/ER Signed Date of Exam:03/23/22 CHEST 1 VIEW, AP/PA ONLY INDICATION: Syncope COMPARISON: 06/29/2012 FINDINGS: Single view the chest demonstrates some stable mediastinal prominence. Sternal wires midline. The heart is normal. There is a questionable developing infiltrate in the right base. There is no pneumothorax or effusion. Osseous structures are stable. IMPRESSION: Questionable developing infiltrate right lung base. Follow-up recommended. Dictated by: Dictated on workstation # [id number] Dict: 03/24/22 0648 Trans: 03/24/22 1018 [facility] [place] [id number] Interpreted by: ABDIRASHID AGARWAL Electronically signed by: ABDIRASHID AGARWAL 03/24/22 1018 Reviewed: Reviewed by Me Departure Impression Primary Impression: Dehydration Additional Impressions: Near syncope Walking pneumonia Disposition: HOME, SELF-CARE Condition: Stable Departure-Patient Inst. Decision time for Depature: 00:46 Referrals: [facility] [place] ([place]) Primary Care Physician Patient Instructions: Dehydration, Adult (DC) Add. Discharge Instructions: Drink plenty of fluids. Sports drinks such as Gatorade or Powerade are recommended. Call your director of parks and recreation tomorrow and request follow-up appointment. Return to the ER for significantly worsening symptoms. Azithromycin has been sent to the pharmacy. Take 2 tablets a day and 1 tablet every day afterwards. All discharge instructions reviewed with patient and/or family. Voiced understanding. Scripts Azithromycin (Azithromycin) 250 Mg Tablet 250 MG PO UD, #6 TAB 0 Refills TAKE 2 TABLETS ON DAY ONE THEN TAKE 1 TABLET DAILY FOR FOUR MORE DAYS Prov: STEPH SOMERS 03/24/22 STEPH SOMERS March 23, 2022 23:31
[2022-03-23 23:36] LABS: ALBUMIN 4.5 GM/DL (3.2-4.5); CHLORIDE 104 MMOL/L (98-107); POTASSIUM 3.4 MMOL/L (3.6-5.0); SODIUM 135 MMOL/L (135-145)
[2022-03-23 23:37] LABS: CALCIUM 9.6 MG/DL (8.5-10.1)
[2022-03-23 23:38] LABS: GLUCOSE 114 MG/DL (70-105); TOTAL PROTEIN 8.1 GM/DL (6.4-8.2)
[2022-03-23 23:39] LABS: CARBON DIOXIDE 18 MMOL/L (21-32)
[2022-03-23 23:40] LABS: BILIRUBIN,TOTAL 0.7 MG/DL (0.1-1.0)
[2022-03-23 23:41] LABS: ALKALINE PHOSPHATASE 82 U/L (40-136)
[2022-03-23 23:42] LABS: CREATININE SERUM 0.77 MG/DL (0.60-1.30); GFR ESTIMATED 112
[2022-03-23 23:43] LABS: BUN/CREATININE RATIO 14
[2022-03-23 23:45] LABS: ALANINE AMINOTRANSFERASE 16 U/L (0-55)
[2022-03-23 23:58] VITALS: BP_SYST 113; BP_SYST 116; BP_DIAS 63; BP_DIAS 77; BP_DIAS 82
[2022-03-24 00:54] VITALS: BP 121/78
--- NOTE | 2022-03-24 07:00 | Diagnostic Imaging Report ---
INDICATION: Syncope COMPARISON: 06/29/2012 FINDINGS: Single view the chest demonstrates some stable mediastinal prominence. Sternal wires midline. The heart is normal. There is a questionable developing infiltrate in the right base. There is no pneumothorax or effusion. Osseous structures are stable. IMPRESSION: Questionable developing infiltrate right lung base. Follow-up recommended. Dictated by: Dictated on workstation # [id number]
[2022-03-24] MEDS ORDERED: AZIT250T12 PO (18:35)
[2022-03-25] MEDS ORDERED: NAPR-1071 PO (00:59)
== END 2022-03-24 00:54 | disposition home or self-care (01) ==
LOC: EDUNIT# 22:39 → ER 22:43
DX: J18.8 Other pneumonia, unspecified organism (principal); R55 Syncope and collapse; Z87.19 Personal history of other diseases of the digestive system; Z79.82 Long term (current) use of aspirin
CPT/HCPCS: 36415; 71045; 80053; 81000; 84484; 84703; 85025; 86141; 93005

== ENCOUNTER 2022-03-24 21:31 | Emergency (ER) | payer BC ==
[~2022-03-24 21:31] MED LIST changes: +AZIT250T12 PO
[2022-03-24] MEDS ORDERED: cefTRIAXone 1 GM PRE-MIX 50 ML IV ONE (22:00)
[2022-03-24] MEDS ORDERED: AZITHROMYCIN 250 MG TAB (ZITHROMAX) PO ONE (22:00)
[2022-03-24] MEDS ORDERED: LACTATED RINGERS 1,000 ML IV ONE (22:00)
[2022-03-24 22:01] LABS: ABG BASE EXCESS -5.9 MMOL/L (-2.5-2.5); ABG OXYGEN SATURATION 97 % (94-100); ABG PCO2 28 MMHG (35-45); ABG PH 7.42 (7.37-7.43); ABG PO2 79 MMHG (79-93); ABG TCO2 18.7 MMOL/L (21.0-31.0); ALLENS TEST POSITIVE; INSPIRED O2 RA; PATIENT TEMP 36.6; VENTILATOR NO
--- NOTE | 2022-03-24 22:06 | ED Chest Pain ---
General Chief Complaint: Cardiac/General Problems Stated Complaint: SOB/WEAKNESS/CP Nursing Triage Note: PT AMB TO [facility] 6 WITH FAMILY WITH C/O FEELING LIGHT HEADED AGAIN, SOB AND CP THT STARTED A COUPLE OF HOURS AGO Source: patient, other Exam Limitations: no limitations History of Present Illness Date Seen by Provider: March 24, 2022 Time Seen by Provider: 21:49 Initial Comments Patient presents to the ER by private conveyance from home with her significant other and chief complaint at today she is had progressively worsening heaviness and chest pressure, substernal just superior to the epigastric region, worse with deep inspiration. She has had a cough that is nonproductive and some chills but does not own a thermometer. She was seen in the ER last night for similar symptoms where she was not feeling well, near syncopal dizzy and given a bag of fluids by IV which helped her. She had a infiltrate seen on her chest x- ray and was sent home with azithromycin which she has not picked up yet. She has a history of tetralogy of Fallot. She has anxiety, she is on omeprazole for GERD which she takes routinely. No familial history of any significant medical disease. She does not smoke. She does not drink routinely. She does not use recreational drugs. She has an IUD in place. She had a negative test yesterday Allergies and Home Medications Allergies Uncoded Allergies: PSEUDOEPHEDRINE (Adverse Reaction, Intermediate, 06/28/12) CAN NOT HAVE DUE TO HEART RELATED CONDITION Patient Home Medication List Home Medication List Reviewed: Yes Aspirin (Aspirin 81 Mg Chew Tab) 81 Mg Chew, 81 MG PO DAILY, (Reported) Entered as Reported by: HERBIE COOLEY on 05/31/11 1900 Azithromycin (Azithromycin) 250 Mg Tablet, 250 MG PO UD Prescribed by: STEPH SOMERS on 03/24/22 1835 Cefdinir (Cefdinir) 300 Mg Capsule, 300 MG PO BID Prescribed by: PATRICIA MIRAMONTES on 01/01/18 042 Escitalopram Oxalate (Lexapro) 10 Mg Tablet, 10 MG PO DAILY Prescribed by: VICENTE DING on 02/04/22 1358 Methylprednisolone (Medrol) 4 Mg Tab.ds.pk, 4 MG PO UD Prescribed by: PATRICIA MIRAMONTES on 01/01/18 042 Metronidazole (Metronidazole) 500 Mg Tablet, 500 MG PO BID Prescribed by: VICENTE DING on 10/16/20 1749 Norgestimate-Ethinyl Estradiol (Mononessa 28 Tablet) 1 Each Tablet, (Reported) Entered as Reported by: ARTIS ORTIZ on 01/01/18 0258 Prednisone (Prednisone) 50 Mg Tab, 50 MG PO DAILY Prescribed by: YONG DONOHUE on 09/28/21 1426 Review of Systems Review of Systems Constitutional: No chills, No diaphoresis EENTM: No Blurred Vision, No Double Vision Respiratory: Denies Cough, Denies Orthopnea Cardiovascular: See HPI, Chest Pain; Denies Edema Gastrointestinal: Denies Abdomen Distended, Denies Abdominal Pain Genitourinary: Denies Burning, Denies Discharge Musculoskeletal: No back pain, No joint pain Skin: No change in color, No lesions Psychiatric/Neurological: Denies Anxiety, Denies Depressed All Other Systems Reviewed Negative Unless Noted: Yes Past Mjliabs-Vxhqbd-Hcaglo Hx Patient Social History Tobacco Use?: No Use of E-Cig and/or Vaping dev: No Substance use?: No Alcohol Use?: No Pt feels they are or have been: No Immunizations Up To Date Tetanus Booster (TDap): Less than 5yrs PED Vaccines UTD: Yes Seasonal Allergies Seasonal Allergies: Yes Past Medical History Surgery/Hospitalization HX: GERD, IBS, TET OF FALLOT Surgeries: Yes (CARDIAC SURGERY X 2 FOR REPAIR OF TETRALOGY OF FALLOT INFANT; BMT'S) Cardiac, Ear Surgery Respiratory: No Cardiac: Yes (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 0.2oz. [id number]; 26.00 BMI Method:Stated General Appearance: No Apparent Distress, WD/WN HEENT: PERRL/EOMI, Pharynx Normal, Moist Mucous Membranes Neck: Full Range of Motion, Normal Inspection Respiratory: Chest Non Tender, Lungs Clear, Normal Breath Sounds, No Accessory Muscle Use, No Respiratory Distress Cardiovascular: Regular Rate, Rhythm, No Edema Gastrointestinal: Normal Bowel Sounds, No Organomegaly, Non Tender, Soft Extremity: Normal Capillary Refill, Normal Inspection Neurologic/Psychiatric: Alert, Oriented x3, Other (Anxious affect) Skin: Normal Color, Warm/Dry Progress/Results/Core Measures Results/Orders Lab Results Laboratory Tests Test 03/24/22 21:50 03/24/22 21:57 Range/Units Blood Gas Puncture Site LEFT RADIAL Blood Gas Patient Temperature 36.6 Arterial Blood pH 7.42 7.37-7.43 Arterial Blood Partial Pressure CO2 28 L 35-45 MMHG Arterial Blood Partial Pressure O2 79 79-93 MMHG Arterial Blood HCO3 18 L 23-27 MMOL/L Arterial Blood Total CO2 18.7 L 21.0-31.0 MMOL/L Arterial Blood Oxygen Saturation 97 94-100 % Arterial Blood Base Excess -5.9 L -2.5-2.5 MMOL/L Rubin Test POSITIVE Blood Gas Ventilator Setting NO Blood Gas Inspired Oxygen RA White Blood Count 6.8 4.3-11.0 10^3/uL Red Blood Count 4.73 3.80-5.11 10^6/uL Hemoglobin 12.3 11.5-16.0 g/dL Hematocrit 38 35-52 % Mean Corpuscular Volume 81 80-99 fL Mean Corpuscular Hemoglobin 26 25-34 pg Mean Corpuscular Hemoglobin Concent 32 32-36 g/dL Red Cell Distribution Width 13.6 10.0-14.5 % Platelet Count 192 130-400 10^3/uL Mean Platelet Volume 9.9 9.0-12.2 fL Immature Granulocyte % (Auto) 0 % Neutrophils (%) (Auto) 74 42-75 % Lymphocytes (%) (Auto) 15 12-44 % Monocytes (%) (Auto) 8 0-12 % Eosinophils (%) (Auto) 2 0-10 % Basophils (%) (Auto) 1 0-10 % Neutrophils # (Auto) 5.0 1.8-7.8 10^3/uL Lymphocytes # (Auto) 1.1 1.0-4.0 10^3/uL Monocytes # (Auto) 0.6 0.0-1.0 10^3/uL Eosinophils # (Auto) 0.1 0.0-0.3 10^3/uL Basophils # (Auto) 0.0 0.0-0.1 10^3/uL Immature Granulocyte # (Auto) 0.0 0.0-0.1 10^3/uL Prothrombin Time 15.3 H 12.2-14.7 SEC INR Comment 1.2 0.8-1.4 D-Dimer 1.34 H 0.00-0.49 UG/ML Sodium Level 136 135-145 MMOL/L Potassium Level 4.1 3.6-5.0 MMOL/L Chloride Level 106 98-107 MMOL/L Carbon Dioxide Level 18 L 21-32 MMOL/L Anion Gap 12 5-14 MMOL/L Blood Urea Nitrogen 8 7-18 MG/DL Creatinine 0.68 0.60-1.30 MG/DL Estimat Glomerular Filtration Rate 126 BUN/Creatinine Ratio 12 Glucose Level 96 70-105 MG/DL Calcium Level 8.8 8.5-10.1 MG/DL Corrected Calcium 8.8 8.5-10.1 MG/DL Total Bilirubin 0.4 0.1-1.0 MG/DL Aspartate Amino Transf (AST/SGOT) 20 5-34 U/L Alanine Aminotransferase (ALT/SGPT) 17 0-55 U/L Alkaline Phosphatase 67 40-136 U/L Troponin I < 0.028 <0.028 NG/ML C-Reactive Protein High Sensitivity 0.14 0.00-0.50 MG/DL Total Protein 7.6 6.4-8.2 GM/DL Albumin 4.0 3.2-4.5 GM/DL My Orders Orders - STEPH SOMERS Continuous Ekg Monitoring (03/24/22 21:45) Ekg Tracing (03/24/22 21:45) Cbc With Automated Diff (03/24/22 21:57) Comprehensive Metabolic Panel (03/24/22 21:57) Hs C Reactive Protein (03/24/22 21:57) Fibrin Degradation Products (03/24/22 21:57) Protime With Inr (03/24/22 21:57) Troponin I Nolan (03/24/22 21:57) Chest Pa/Lat (2 View) (03/24/22 21:57) Arterial Blood Gas (03/24/22 21:57) Ed Iv/Invasive Line Start (03/24/22 21:58) Lactated Ringers (Lr 1000 Ml Iv Solution (03/24/22 22:00) Ceftriaxone 1 Gm Pre-Mix (Rocephin 1 Gm (03/24/22 22:00) Azithromycin Tablet (Zithromax Tablet) (03/24/22 22:00) Lidocaine 2% Viscous 15 Ml (Xylocaine Vi (03/24/22 22:15) Famotidine Tablet (Pepcid Tablet) (03/24/22 22:10) Antacid Suspension (Mylanta Suspension (03/24/22 22:15) Ct Angio Chest W (03/24/22 22:49) Iohexol Injection (Omnipaque 350 Mg/Ml 1 (03/24/22 23:30) Sodium Chloride Flush (Catheter Flush Sy (03/24/22 23:30) Ns (Ivpb) (Sodium Chloride 0.9% Ivpb Bag (03/24/22 23:30) Medications Given in ED Current Medications Medications Dose Ordered Sig/Jadiel Route Start Time Stop Time Status Last Admin Dose Admin Al Hydrox/Mg Hydrox/Simethicone 30 ml ONCE ONCE PO 03/24/22 22:15 03/24/22 22:16 DC 03/24/22 22:25 30 ML Azithromycin 500 mg ONCE ONCE PO 03/24/22 22:00 03/24/22 22:01 DC 03/24/22 22:25 500 MG Ceftriaxone Sodium/Dextrose 50 ml @ 100 mls/hr ONCE ONCE IV 03/24/22 22:00 03/24/22 22:29 DC 03/24/22 22:24 100 MLS/HR Iohexol 100 ml ONCE ONCE IV 03/24/22 23:30 03/24/22 23:31 DC 03/24/22 23:30 85 ML Lactated Ringer's 1,000 ml @ 0 mls/hr Q0M ONCE IV 03/24/22 22:00 03/24/22 22:01 DC 03/24/22 22:24 1,000 MLS/HR Lidocaine HCl 15 ml ONCE ONCE PO 03/24/22 22:15 03/24/22 22:16 DC 03/24/22 22:25 15 ML Sodium Chloride 10 ml NEEDED PRN IV 03/24/22 23:30 03/24/22 23:30 10 ML Sodium Chloride 100 ml ONCE ONCE IV 03/24/22 23:30 03/24/22 23:31 DC 03/24/22 23:30 80 ML Vital Signs/I&O 03/24/22 21:45 Temp 36.6 Pulse 78 Resp 20 B/P (MAP) 117/73 (88) 03/25/22 00:00 Intake Total 50 ml Balance 50 ml Blood Pressure Mean: 88 Progress Progress Note #1: Time: 22:09 Progress Note Patient certainly has a background history of anxiety. She does not have significant coronary disease risk factors. Suspect her chest pressure and pain may be due to her GERD, anxiety, pleurisy from her possible pneumonia. We will go ahead and cover her with some broad-spectrum antibiotics get some blood cultures and repeat a two-view chest x-ray and blood work. We will give her a liter of fluids. GI cocktail Progress Note #2: Time: 00:59 Progress Note Patient is feeling significantly better no longer having any anxiety after reviewing the findings and ready to go home. We can have her keep taking the azithromycin and use NSAIDs and follow-up in 1 to 2 weeks with primary care if needed. Return precautions were discussed Initial ECG Impression Date: March 24, 2022 Initial ECG Impression Time: 21:51 Initial ECG Rate: 72 Initial ECG Rhythm: Normal Sinus Initial ECG Intervals: Normal Initial ECG Impression: Normal Initial ECG Comparisson: Unchanged Comment Normal sinus rhythm without clinically relevant ST elevation or depression. Incomplete right bundle branch block. Diagnostic Imaging Diagonstic Imaging: Xray Plain Films/CT/US/NM/MRI: chest Comments [facility], [place] NAME: [facility] REC#: [id number] PT STATUS: REG ER : 2000 PHYSICIAN: STEPH SOMERS MD ADMIT DATE: 03/24/22/ER Draft Date of Exam:03/24/22 CHEST PA/LAT (2 VIEW) INDICATION: Feeling lightheaded, shortness of breath, chest pain starting a couple of hours ago. TECHNIQUE: Two view chest 10:17 PM. CORRELATION STUDY: 03/23/2022, 01/01/2018. FINDINGS: Sternal wires are present. Heart size is normal. Abnormal soft tissue density in the right suprahilar paramediastinal region. Pulmonary vasculature overall within normal limits. No definitive consolidating infiltrate. Visualized osseous structures are unremarkable. IMPRESSION: 1. Prior sternotomy change. Heart size normal. 2. There is abnormal density in the right suprahilar paramediastinal region. Appears somewhat changed from prior studies. Given history of apparent sternotomy, could be owing to chronic cardiovascular pathology. However, underlying mass or lymphadenopathy is not excluded. If indicated, correlation with CT imaging of the chest would be recommended. Dictated on workstation # [id number] Dict: 03/24/22 2243 Trans: 03/24/22 2251 [facility] [id number] Interpreted by: EV RODRIGUEZ DO Electronically signed by: Reviewed: Reviewed by Me Diagonstic Imaging: CT Plain Films/CT/US/NM/MRI: chest Comments No acute intrathoracic findings Reviewed: Reviewed by Me Departure Impression Primary Impression: Pleurisy Disposition: 01 HOME, SELF-CARE Condition: Stable Departure-Patient Inst. Decision time for Depature: 00:52 Referrals: [facility] (PCP/Family) Primary Care Physician Patient Instructions: Pleuritic Chest Pain Add. Discharge Instructions: I think the chest pressure you are experiencing is from irritation of the lung linings against the chest wall inner lining known as pleurisy. You can use naproxen 500 mg twice a day to reduce the inflammation and pain. If is persistent for more than a week or 2 you can follow-up with your primary care doctor for recheck and perhaps consider steroids at that time. Tylenol 1000 mg every 8 hours needed for pain can be helpful. Vapor rubs such as Vicks or Mentholatum can be helpful for congestion. Go ahead and complete the azithromycin as prescribed. All discharge instructions reviewed with patient and/or family. Voiced understanding. Scripts Naproxen (Naprosyn) 500 Mg Tablet 500 MG PO BID, #30 TAB 0 Refills Prov: STEPH SOMERS 03/25/22 Work/School Note: Work Release Form Date Seen in the Emergency Department: March 25, 2022 Return to Work: March 26, 2022 Restrictions: No Restrictions STEPH SOMERS March 24, 2022 22:06
[2022-03-24 22:09] LABS: BASOPHILS % (AUTO) 1 % (0-10); EOSINOPHILS # (AUTO) 0.1 10^3/uL (0.0-0.3); EOSINOPHILS % (AUTO) 2 % (0-10); HEMATOCRIT 38 % (35-52); HEMOGLOBIN 12.3 g/dL (11.5-16.0); LYMPHOCYTES # (AUTO) 1.1 10^3/uL (1.0-4.0); LYMPHOCYTES % (AUTO) 15 % (12-44); MEAN CORPUSCULAR HEMOGLOBIN 26 pg (25-34); MEAN CORPUSCULAR HGB CONC 32 g/dL (32-36); MEAN CORPUSCULAR VOLUME 81 fL (80-99); MEAN PLATELET VOLUME 9.9 fL (9.0-12.2); MONOCYTES # (AUTO) 0.6 10^3/uL (0.0-1.0); MONOCYTES % (AUTO) 8 % (0-12); NEUTROPHILS % (AUTO) 74 % (42-75); PLATELET COUNT 192 10^3/uL (130-400); WHITE BLOOD COUNT 6.8 10^3/uL (4.3-11.0)
[2022-03-24] MEDS ORDERED: FAMOTIDINE 20 MG (PEPCID) TABLET PO STA (22:10)
[2022-03-24] MEDS ORDERED: LIDOCAINE 2% VISCOUS 15 ML UDC PO ONE (22:15)
[2022-03-24] MEDS ORDERED: ANTACID SUSP 30 ML UDC (MYLANTA) PO ONE (22:15)
[2022-03-24 22:22] LABS: CHLORIDE 106 MMOL/L (98-107); POTASSIUM 4.1 MMOL/L (3.6-5.0); SODIUM 136 MMOL/L (135-145)
[2022-03-24 22:23] LABS: CALCIUM 8.8 MG/DL (8.5-10.1)
[2022-03-24 22:24] LABS: GLUCOSE 96 MG/DL (70-105); TOTAL PROTEIN 7.6 GM/DL (6.4-8.2)
[2022-03-24 22:25] LABS: CARBON DIOXIDE 18 MMOL/L (21-32)
[2022-03-24 22:26] LABS: BILIRUBIN,TOTAL 0.4 MG/DL (0.1-1.0)
[2022-03-24 22:28] LABS: ALKALINE PHOSPHATASE 67 U/L (40-136); CREATININE SERUM 0.68 MG/DL (0.60-1.30); GFR ESTIMATED 126
[2022-03-24 22:29] LABS: BUN/CREATININE RATIO 12
[2022-03-24 22:31] LABS: ALANINE AMINOTRANSFERASE 17 U/L (0-55)
[2022-03-24 22:38] LABS: FIBRIN DEGRADATION PRODUCTS 1.34 UG/ML (0.00-0.49); INR 1.2 (0.8-1.4); PROTHROMBIN TIME PATIENT 15.3 SEC (12.2-14.7)
--- NOTE | 2022-03-24 22:52 | Diagnostic Imaging Report ---
INDICATION: Feeling lightheaded, shortness of breath, chest pain starting a couple of hours ago. TECHNIQUE: Two view chest 10:17 PM. CORRELATION STUDY: 03/23/2022, 01/01/2018. FINDINGS: Sternal wires are present. Heart size is normal. Abnormal soft tissue density in the right suprahilar paramediastinal region. Pulmonary vasculature overall within normal limits. No definitive consolidating infiltrate. Visualized osseous structures are unremarkable. IMPRESSION: 1. Prior sternotomy change. Heart size normal. 2. There is abnormal density in the right suprahilar paramediastinal region. Appears somewhat changed from prior studies. Given history of apparent sternotomy, could be owing to chronic cardiovascular pathology. However, underlying mass or lymphadenopathy is not excluded. If indicated, correlation with CT imaging of the chest would be recommended. Dictated by: Dictated on workstation # [id number]
[2022-03-24] MEDS ORDERED: CATHETER FLUSH 10 ML SYR IV PRN (23:30)
[2022-03-24] MEDS ORDERED: IOHEXOL 350 MG/ML 100 ML (OMNIPAQUE 350) VIAL IV ONE (23:30)
[2022-03-24] MEDS ORDERED: NS 100 ML (IVPB) BAG IV ONE (23:30)
[2022-03-25] MEDS ORDERED: NAPR-1071 PO (00:59)
[2022-03-25 01:07] VITALS: BP 116/74
--- NOTE | 2022-03-25 06:23 | Diagnostic Imaging Report ---
PROCEDURE: CT angiography of the chest with contrast. TECHNIQUE: Multiple contiguous axial images were obtained through the chest after uneventful bolus administration of intravenous contrast. 3D reconstructed CTA MIP acquisitions were also performed. Auto Exposure Controls were utilized during the CT exam to meet ALARA standards for radiation dose reduction. INDICATION: Shortness of breath. Lightheaded. History of tetralogy of flow surgery. COMPARISON: Chest radiograph 03/24/2022. CT abdomen and pelvis with IV contrast 10/16/2020. FINDINGS: No pulmonary artery filling defects. Normal caliber thoracic aorta. Postoperative changes in the IVC near the right atrium are stable. Normal heart size. No pericardial effusion. No lymphadenopathy. Lungs are clear. No pleural effusion or pneumothorax. Sternotomy. No acute osseous findings. Hepatomegaly and nodular contour of the liver. IMPRESSION: 1. No pulmonary emboli. 2. No acute CT findings in the chest. 3. Hepatomegaly with nodular contour of the liver is stable. No significant change from preliminary interpretation. Dictated by: Dictated on workstation # [id number]
== END 2022-03-25 01:08 | disposition home or self-care (01) ==
LOC: EDUNIT# 21:31 → ER 21:33
DX: R09.1 Pleurisy (principal); I45.19 Other right bundle-branch block; Q24.9 Congenital malformation of heart, unspecified; F41.9 Anxiety disorder, unspecified; K21.9 Gastro-esophageal reflux disease without esophagitis; Z79.899 Other long term (current) drug therapy; Z97.5 Presence of (intrauterine) contraceptive device
CPT/HCPCS: 36415; 71046; 71275; 80053; 82805; 84484; 85025; 85379; 85610; 86141; 93005

== ENCOUNTER 2022-09-23 19:26 | Emergency (ER) | payer SELFPAY ==
[~2022-09-23] VITALS: Ht 167.7 cm; Wt 79.0 kg
[~2022-09-23 19:26] MED LIST changes: +NAPR-1071 PO
[2022-09-23] MEDS ORDERED: ASPIRIN 81 MG CHEW (CHILDREN'S ASA) PO ONE (19:45)
--- NOTE | 2022-09-23 19:48 | ED Cardiac General ---
History of Present Illness General Stated Complaint: ABNORMAL EKG,TROUBLE BREATHING,CHEST DISCOMFORT Source: patient History of Present Illness Date Seen by Provider: Sep 23, 2022 Time Seen by Provider: 19:39 Initial Comments PT ARRIVES VIA POV--SENT HERE FROM [facility] C/O CHEST PAIN OFF AND ON SINCE YESTERDAY MORNING PAIN IS IN CENTER OF CHEST NO RADIATION OF PAIN NOTHING WORSENS OR IMPROVES PAIN, BUT HAS NOT TAKEN ANYTHING FOR PAIN. RATES PAIN 5/10 AT WORST, RATES 1/10 NOW. NO PALPITATIONS NO DIZZINESS OR SYNCOPE ALSO C/O SHORTNESS OF BREATH--STATES O2 SAT NORMALLY 92-96% + NON-PRODUCTIVE COUGH NO FEVER/SWEATS/CHILLS NO GI SYMPTOMS NO SWELLING IN LEGS/FEET OR PAIN IN CALVES PT HAS HISTORY OF SAME PT WITH HISTORY OF TETRALOGY OF FALLOT--S/P SURGERY X 2 TAKES 81 MG ASPIRIN DAILY, NO OTHER CARDIAC MEDICATIONS DENIES ANY HISTORY OF LUNG PROBLEMS TAKES PRN MEDICATION FOR IBS, AND TAKES LEXAPRO DAILY FOR ANXIETY/DEPRESSION WENT TO [facility] WALK IN [facility]INIC TODAY FOR THIS PROBLEM, HAD EKG DONE AND WAS TOLD IT WAS "ABNORMAL" AND SENT HERE. LMP--MID AUGUST, NORMAL. NO CONTROL PT IS NOT COVID OR FLU VACCINATED PCP: [facility] CARDIOLOGY: DR. RESTREPO, WITH [facility] [place] Allergies and Home Medications Allergies Uncoded Allergies: PSEUDOEPHEDRINE (Adverse Reaction, Intermediate, 06/28/12) CAN NOT HAVE DUE TO HEART RELATED CONDITION Patient Home Medication List Aspirin (Aspirin 81 Mg Chew Tab) 81 Mg Chew, 81 MG PO DAILY, (Reported) Entered as Reported by: HERBIE COOLEY on 05/31/11 1900 Azithromycin (Azithromycin) 250 Mg Tablet, 250 MG PO UD Prescribed by: STEPH SOMERS on 03/24/22 1835 Cefdinir (Cefdinir) 300 Mg Capsule, 300 MG PO BID Prescribed by: PATRICIA MIRAMONTES on 01/01/18 042 Escitalopram Oxalate (Lexapro) 10 Mg Tablet, 10 MG PO DAILY Prescribed by: VICENTE DING on 02/04/22 1358 Methylprednisolone (Medrol) 4 Mg Tab.ds.pk, 4 MG PO UD Prescribed by: PATRICIA MIRAMONTES on 01/01/18 042 Metronidazole (Metronidazole) 500 Mg Tablet, 500 MG PO BID Prescribed by: VICENTE DING on 10/16/20 1749 Naproxen (Naprosyn) 500 Mg Tablet, 500 MG PO BID Prescribed by: STEPH SOMERS on 03/25/22 0059 Norgestimate-Ethinyl Estradiol (Mononessa 28 Tablet) 1 Each Tablet, (Reported) Entered as Reported by: ARTIS ORTIZ on 01/01/18 0258 Prednisone (Prednisone) 50 Mg Tab, 50 MG PO DAILY Prescribed by: YONG DONOHUE on 09/28/21 1426 Review of Systems Review of Systems Constitutional: no symptoms reported EENTM: No Symptoms Reported Respiratory: See HPI, Cough, Shortness of Air Cardiovascular: See HPI, Chest Pain; Denies Edema, Denies Irregular Heart Rate, Denies Lightheadedness, Denies Palpitations, Denies Syncope Gastrointestinal: No Symptoms Reported Genitourinary: No Symptoms Reported Musculoskeletal: no symptoms reported Skin: no symptoms reported Psychiatric/Neurological: No Symptoms Reported Endocrine: No Symptoms Reported Hematologic/Lymphatic: No Symptoms Reported Past [id number]-[id number]-Uzppbf Hx Patient Social History Tobacco Use?: No Substance use?: No Alcohol Use?: No Immunizations Up To Date Tetanus Booster (TDap): Less than 5yrs PED Vaccines UTD: Yes Seasonal Allergies Seasonal Allergies: Yes Past Medical History Surgery/Hospitalization HX: GERD, IBS, TET OF FALLOT Surgeries: Yes (CARDIAC SURGERY X 2 FOR REPAIR OF TETRALOGY OF FALLOT ; BMT'S) Cardiac, Ear Surgery Respiratory: No Cardiac: Yes (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) Congenital Heart Disease Neurological: No : No Last Menstrual Period: Sep 03, 2022 Reproductive Disorders: No Genitourinary: No Gastrointestinal: Yes Chronic Constipation, Irritable Bowel Musculoskeletal: No Endocrine: No HEENT: Yes (S/P BMT'S) Chronic Ear Infection Cancer: No Psychosocial: Yes Anxiety, Depression Integumentary: No Blood Disorders: No Family Medical History No Pertinent Family Hx Physical Exam Vital Signs Vital Signs - First Documented 09/23/22 09/23/22 19:51 20:04 Temp 35.7 Pulse 86 Resp 18 B/P (MAP) 117/96 (103) Pulse Ox 96 O2 Delivery Nasal Cannula O2 Flow Rate 2.00 Capillary Refill : Height, Weight, BMI Height: 5'5.00" Weight: 148lbs. 0.2oz. [id number]; 26.00 BMI Method:Stated General Appearance: No Apparent Distress, WD/WN, Other (DOES NOT APPEAR ILL OR TO BE IN ANY DISCOMFORT OR DISTRESS) HEENT: PERRL/EOMI Neck: Normal Inspection Respiratory: Chest Non Tender, Normal Breath Sounds, No Accessory Muscle Use, No Respiratory Distress Cardiovascular: Regular Rate, Rhythm, No Edema, No JVD, Normal Peripheral Pulses Gastrointestinal: Non Tender, Soft Extremity: Normal Capillary Refill, Normal Inspection, Normal Range of Motion, Non Tender, No Calf Tenderness, No Pedal Edema Neurologic/Psychiatric: Alert, Oriented x3, No Motor/Sensory Deficits, Normal Mood/Affect, cell preparer II-XII Norm as Tested Skin: Normal Color, Warm/Dry Progress/Results/Core Measures Results/Orders Lab Results Laboratory Tests Test 09/23/22 19:40 09/23/22 19:41 09/23/22 19:54 Range/Units White Blood Count 8.1 4.3-11.0 10^3/uL Red Blood Count 5.39 H 3.80-5.11 10^6/uL Hemoglobin 13.1 11.5-16.0 g/dL Hematocrit 41 35-52 % Mean Corpuscular Volume 77 L 80-99 fL Mean Corpuscular Hemoglobin 24 L 25-34 pg Mean Corpuscular Hemoglobin Concent 32 32-36 g/dL Red Cell Distribution Width 15.1 H 10.0-14.5 % Platelet Count 271 130-400 10^3/uL Mean Platelet Volume 9.9 9.0-12.2 fL Immature Granulocyte % (Auto) 1 % Neutrophils (%) (Auto) 75 42-75 % Lymphocytes (%) (Auto) 13 12-44 % Monocytes (%) (Auto) 8 0-12 % Eosinophils (%) (Auto) 3 0-10 % Basophils (%) (Auto) 1 0-10 % Neutrophils # (Auto) 6.0 1.8-7.8 10^3/uL Lymphocytes # (Auto) 1.0 1.0-4.0 10^3/uL Monocytes # (Auto) 0.7 0.0-1.0 10^3/uL Eosinophils # (Auto) 0.3 0.0-0.3 10^3/uL Basophils # (Auto) 0.0 0.0-0.1 10^3/uL Immature Granulocyte # (Auto) 0.0 0.0-0.1 10^3/uL Erythrocyte Sedimentation Rate 7 0-20 MM/HR Prothrombin Time 14.8 H 12.2-14.7 SEC INR Comment 1.1 0.8-1.4 Activated Partial Thromboplast Time 40 H 24-35 SEC D-Dimer < 0.22 0.00-0.49 UG/ML Sodium Level 137 135-145 MMOL/L Potassium Level 3.9 3.6-5.0 MMOL/L Chloride Level 105 98-107 MMOL/L Carbon Dioxide Level 19 L 21-32 MMOL/L Anion Gap 13 5-14 MMOL/L Blood Urea Nitrogen 10 7-18 MG/DL Creatinine 0.79 0.60-1.30 MG/DL Estimat Glomerular Filtration Rate 108 BUN/Creatinine Ratio 13 Glucose Level 91 70-105 MG/DL Calcium Level 9.8 8.5-10.1 MG/DL Corrected Calcium 9.4 8.5-10.1 MG/DL Magnesium Level 1.9 1.6-2.4 MG/DL Total Bilirubin 0.8 0.1-1.0 MG/DL Aspartate Amino Transf (AST/SGOT) 22 5-34 U/L Alanine Aminotransferase (ALT/SGPT) 27 0-55 U/L Alkaline Phosphatase 84 40-136 U/L Total Creatine Kinase 30 29-168 U/L Creatine Kinase MB 0.3 <6.6 NG/ML Myoglobin 16.5 10.0-92.0 NG/ML Troponin I < 0.028 <0.028 NG/ML C-Reactive Protein High Sensitivity 0.20 0.00-0.50 MG/DL B-Type Natriuretic Peptide 28.2 <100.0 PG/ML Total Protein 8.1 6.4-8.2 GM/DL Albumin 4.5 3.2-4.5 GM/DL Amylase Level 39 25-125 U/L Lipase 13 8-78 U/L TSH Schleicher Testing 2.48 0.35-4.94 UIU/ML Serum Test, Qualitative NEGATIVE NEGATIVE Serum Alcohol < 10 <10 MG/DL Influenza Type A (RT-PCR) Not Detected Not Detecte Influenza Type B (RT-PCR) Not Detected Not Detecte SARS-CoV-2 RNA (RT-PCR) Not Detected Not Detecte Urine Color YELLOW Urine Clarity CLEAR Urine pH 6.0 5-9 Urine Specific [place] 1.010 L 1.016-1.022 Urine Protein NEGATIVE NEGATIVE Urine Glucose (UA) NEGATIVE NEGATIVE Urine Ketones NEGATIVE NEGATIVE Urine Nitrite NEGATIVE NEGATIVE Urine Bilirubin NEGATIVE NEGATIVE Urine Urobilinogen 0.2 < = 1.0 MG/DL Urine Leukocyte Esterase NEGATIVE NEGATIVE Urine RBC (Auto) NEGATIVE NEGATIVE Urine RBC NONE /HPF Urine WBC NONE /HPF Urine Squamous Epithelial Cells 2-5 /HPF Urine Crystals NONE /LPF Urine Bacteria TRACE /HPF Urine Casts NONE /LPF Urine Mucus NEGATIVE /LPF Urine Culture Indicated NO Urine Opiates Screen NEGATIVE NEGATIVE Urine Oxycodone Screen NEGATIVE NEGATIVE Urine Methadone Screen NEGATIVE NEGATIVE Urine Propoxyphene Screen NEGATIVE NEGATIVE Urine Barbiturates Screen NEGATIVE NEGATIVE Ur Tricyclic Antidepressants Screen NEGATIVE NEGATIVE Urine Phencyclidine Screen NEGATIVE NEGATIVE Urine Amphetamines Screen NEGATIVE NEGATIVE Urine Methamphetamines Screen NEGATIVE NEGATIVE Urine Benzodiazepines Screen NEGATIVE NEGATIVE Urine Cocaine Screen NEGATIVE NEGATIVE Urine Cannabinoids Screen POSITIVE H NEGATIVE My Orders Orders - PATRICIA MIRAMONTES DO Ekg Tracing (09/23/22 19:38) Monitor-Rhythm Ecg Trace Only (09/23/22 19:38) Ed Iv/Invasive Line Start (09/23/22 19:39) O2 (09/23/22 19:39) Alcohol (09/23/22 19:39) Amylase (09/23/22 19:39) Bnp Terrie (09/23/22 19:39) Cbc With Automated Diff (09/23/22 19:39) Comprehensive Metabolic Panel (09/23/22 19:39) Creatine Kinase (09/23/22 19:39) Creatine Kinase Mb (09/23/22 19:39) Hs C Reactive Protein (09/23/22 19:39) Fibrin Degradation Products (09/23/22 19:39) Drug Screen Stat (Urine) (09/23/22 19:39) Hcg,Qualitative Serum (09/23/22 19:39) Lipase (09/23/22 19:39) Magnesium (09/23/22 19:39) Protime With Inr (09/23/22 19:39) Partial Thromboplastin Time (09/23/22 19:39) Thyroid Analyzer (09/23/22 19:39) Ua Culture If Indicated (09/23/22 19:39) Erythrocyte Sedimentation Rate (09/23/22 19:39) Myoglobin Serum (09/23/22 19:39) Troponin I Travis (09/23/22 19:39) Chest 1 View, Ap/Pa Only (09/23/22 19:39) Ed Iv/Invasive Line Start (09/23/22 19:39) Aspirin Chewable Tablet (Baby Aspirin Ch (09/23/22 19:45) Covid 19 Inhouse Test (09/23/22 19:39) Influenza A And B By Pcr (09/23/22 19:39) Isolation Central Supply Req (09/23/22 19:39) Ketorolac Injection (Toradol Injection) (09/23/22 21:30) Medications Given in ED Current Medications Medications Dose Ordered Sig/Jadiel Route Start Time Stop Time Status Last Admin Dose Admin Aspirin 324 mg ONCE ONCE PO 09/23/22 19:45 09/23/22 19:46 DC 09/23/22 19:56 324 MG Ketorolac Tromethamine 30 mg ONCE ONCE IVP 09/23/22 21:30 09/23/22 21:32 DC 09/23/22 21:39 30 MG Vital Signs/I&O 09/23/22 09/23/22 19:51 20:04 Temp 35.7 Pulse 86 Resp 18 B/P (MAP) 117/96 (103) Pulse Ox 96 O2 Delivery Nasal Cannula O2 Flow Rate 2.00 Progress Progress Note : Progress Note PLACED IN ISOLATION ROOM PPE WORN COVID AND FLU TESTING DONE GIVEN: -ASPIRIN O2 SAT 91-92% ON ROOM AIR ON ARRIVAL. PLACED ON O2 AT 2L/NC AND O2 SATS UP TO 94-95% Initial ECG Impression Date: Sep 23, 2022 Initial ECG Impression Time: 19:41 Initial ECG Rate: 82 Initial ECG Rhythm: Normal Sinus (IVCD) Initial ECG Impression: Nonspecific Changes Initial ECG Comparisson: Unchanged Diagnostic Imaging Comments CXR--PER RADIOLOGIST REPORT AT 2056 FINDINGS: Heart size is within normal limits with surgical findings again noted in the mediastinum with mass effect in the right upper mediastinum which may be due to vascular prominence. This does remain stable. There is no pneumothorax or new infiltrate. No pleural fluid is seen. IMPRESSION: Stable operative findings in the mediastinum without new abnormality or adverse change. Reviewed: Reviewed by Me Departure Impression Primary Impression: Chest wall pain Disposition: 01 HOME, SELF-CARE Condition: Improved Departure-Patient Inst. Decision time for Depature: 22:10 Referrals: [facility] (PCP/Family) Primary Care Physician Patient Instructions: Chest Pain (DC), Costochondritis (DC) Add. Discharge Instructions: CONTINUE YOUR REGULAR MEDICATIONS PRESCRIBED FOLLOW UP WITH YOUR DR IN 2-3 DAYS IF NO BETTER RETURN TO ER IF WORSE Scripts Ketorolac Tromethamine (Ketorolac Tromethamine) 10 Mg Tablet 10 MG PO Q6H for Pain, #15 TAB Prov: PATRICIA MIRAMONTES DO 09/23/22 PATRICIA MIRAMONTES DO Sep 23, 2022 19:48
[2022-09-23 19:51] VITALS: BP 117/96
[2022-09-23 19:53] LABS: BASOPHILS % (AUTO) 1 % (0-10); EOSINOPHILS # (AUTO) 0.3 10^3/uL (0.0-0.3); EOSINOPHILS % (AUTO) 3 % (0-10); HEMATOCRIT 41 % (35-52); HEMOGLOBIN 13.1 g/dL (11.5-16.0); LYMPHOCYTES % (AUTO) 13 % (12-44); MEAN CORPUSCULAR HEMOGLOBIN 24 pg (25-34); MEAN CORPUSCULAR HGB CONC 32 g/dL (32-36); MEAN CORPUSCULAR VOLUME 77 fL (80-99); MEAN PLATELET VOLUME 9.9 fL (9.0-12.2); MONOCYTES # (AUTO) 0.7 10^3/uL (0.0-1.0); MONOCYTES % (AUTO) 8 % (0-12); NEUTROPHILS % (AUTO) 75 % (42-75); PLATELET COUNT 271 10^3/uL (130-400); WHITE BLOOD COUNT 8.1 10^3/uL (4.3-11.0)
[2022-09-23 20:03] LABS: BILIRUBIN,URINE NEGATIVE (NEGATIVE); CLARITY,URINE CLEAR; COLOR,URINE YELLOW; GLUCOSE, URINE (UA) NEGATIVE (NEGATIVE); KETONES,URINE NEGATIVE (NEGATIVE); LEUKOCYTE ESTERASE ,URINE NEGATIVE (NEGATIVE); NITRITE,URINE NEGATIVE (NEGATIVE); PROTEIN,URINE NEGATIVE (NEGATIVE)
[2022-09-23 20:23] LABS: BACTERIA,URINE TRACE /HPF
[2022-09-23 20:24] LABS: ALBUMIN 4.5 GM/DL (3.2-4.5); CHLORIDE 105 MMOL/L (98-107); ERYTHROCYTE SEDIMENTATION RATE 7 MM/HR (0-20); POTASSIUM 3.9 MMOL/L (3.6-5.0); SODIUM 137 MMOL/L (135-145)
[2022-09-23 20:25] LABS: CALCIUM 9.8 MG/DL (8.5-10.1)
[2022-09-23 20:26] LABS: AMYLASE 39 U/L (25-125)
[2022-09-23 20:27] LABS: GLUCOSE 91 MG/DL (70-105); TOTAL PROTEIN 8.1 GM/DL (6.4-8.2)
[2022-09-23 20:28] LABS: BILIRUBIN,TOTAL 0.8 MG/DL (0.1-1.0); CARBON DIOXIDE 19 MMOL/L (21-32)
[2022-09-23 20:30] LABS: ALKALINE PHOSPHATASE 84 U/L (40-136); CREATININE SERUM 0.79 MG/DL (0.60-1.30); GFR ESTIMATED 108
[2022-09-23 20:32] LABS: BUN/CREATININE RATIO 13
[2022-09-23 20:33] LABS: ALANINE AMINOTRANSFERASE 27 U/L (0-55)
[2022-09-23 20:34] LABS: MAGNESIUM 1.9 MG/DL (1.6-2.4)
[2022-09-23 20:35] LABS: LIPASE 13 U/L (8-78)
[2022-09-23 20:43] LABS: CREATINE KINASE MB 0.3 NG/ML (<6.6)
--- NOTE | 2022-09-23 20:47 | Diagnostic Imaging Report ---
INDICATION: Chest pain. COMPARISON: 03/23/2022. EXAMINATION: AP view of the chest was obtained. FINDINGS: Heart size is within normal limits with surgical findings again noted in the mediastinum with mass effect in the right upper mediastinum which may be due to vascular prominence. This does remain stable. There is no pneumothorax or new infiltrate. No pleural fluid is seen. IMPRESSION: Stable operative findings in the mediastinum without new abnormality or adverse change. Dictated by: Dictated on workstation # [id number]
[2022-09-23 20:55] LABS: TSH (THYROID ANALYZER) 2.48 UIU/ML (0.35-4.94)
[2022-09-23 21:14] LABS: PROTHROMBIN TIME PATIENT 14.8 SEC (12.2-14.7)
[2022-09-23 21:15] LABS: FIBRIN DEGRADATION PRODUCTS < 0.22 UG/ML (0.00-0.49); INR 1.1 (0.8-1.4); PARTIAL THROMBOPLASTIN TIME 40 SEC (24-35)
[2022-09-23 21:19] LABS: AMPHETAMINE SCREEN, URINE NEGATIVE (NEGATIVE); BARBITURATE SCREEN URINE NEGATIVE (NEGATIVE); BENZODIAZEPINES SCREEN URINE NEGATIVE (NEGATIVE); CANNABINOID SCREEN, URINE POSITIVE (NEGATIVE); COCAINE SCREEN URINE NEGATIVE (NEGATIVE); METHADONE STAT NEGATIVE (NEGATIVE); OPIATE SCREEN URINE NEGATIVE (NEGATIVE); OXYCODONE STAT NEGATIVE (NEGATIVE); PROPOXYPHENE STAT NEGATIVE (NEGATIVE); TRICYCLIC ANTIDEPRESSANTS SCRE NEGATIVE (NEGATIVE)
[2022-09-23] MEDS ORDERED: KETOROLAC 30 MG/ML VIAL IVP ONE (21:30)
[2022-09-23 21:58] LABS: CREATINE KINASE 30 U/L (29-168)
[2022-09-23] MEDS ORDERED: KETO10TA PO (22:14)
== END 2022-09-23 22:50 | disposition home or self-care (01) ==
LOC: EDUNIT# 19:26 → ER 19:28
DX: R07.89 Other chest pain (principal); Z98.890 Other specified postprocedural states; Z20.822 Contact with and (suspected) exposure to COVID-19; Z28.310 Unvaccinated for COVID-19; Z79.82 Long term (current) use of aspirin
CPT/HCPCS: 71045; 80053; 80306; 81000; 82150; 82550; 82553; 83690; 83735; 83874; 83880; 84443; 84484; 84703; 85025; 85379; 85610; 85652; 85730; 86141; 87636; 93005; 93041; 99284; G0480; 36415; 80320

== ENCOUNTER 2023-03-22 16:44 | Emergency (ER) | payer SELFPAY ==
[~2023-03-22] VITALS: Ht 167 cm; Wt 77.0 kg
[~2023-03-22 16:44] MED LIST changes: +KETO10TA PO
[2023-03-22 17:19] LABS: BASOPHILS # (AUTO) 0.1 10^3/uL (0.0-0.1); BASOPHILS % (AUTO) 1 % (0-10); EOSINOPHILS # (AUTO) 0.4 10^3/uL (0.0-0.3); EOSINOPHILS % (AUTO) 5 % (0-10); HEMATOCRIT 43 % (35-52); HEMOGLOBIN 13.7 g/dL (11.5-16.0); LYMPHOCYTES # (AUTO) 1.2 10^3/uL (1.0-4.0); LYMPHOCYTES % (AUTO) 15 % (12-44); MEAN CORPUSCULAR HEMOGLOBIN 25 pg (25-34); MEAN CORPUSCULAR HGB CONC 32 g/dL (32-36); MEAN CORPUSCULAR VOLUME 77 fL (80-99); MEAN PLATELET VOLUME 9.9 fL (9.0-12.2); MONOCYTES # (AUTO) 0.7 10^3/uL (0.0-1.0); MONOCYTES % (AUTO) 9 % (0-12); NEUTROPHILS # (AUTO) 5.3 10^3/uL (1.8-7.8); NEUTROPHILS % (AUTO) 69 % (42-75); PLATELET COUNT 252 10^3/uL (130-400); WHITE BLOOD COUNT 7.7 10^3/uL (4.3-11.0)
--- NOTE | 2023-03-22 17:29 | Diagnostic Imaging Report ---
INDICATION: Abnormal EKG. Lightheaded for one month. EXAMINATION: Chest, 03/22/2023. COMPARISON: 09/23/2022. FINDINGS: There is prominence along the mediastinum, more pronounced than on previous imaging. A mass is not excluded. Heart is unremarkable. Pulmonary vasculature is normal. Sternotomy wires are present. No infiltrates, effusions, or pneumothorax. IMPRESSION: 1. Prominence of the mediastinum possibly due to prominent vasculature as seen on the prior CT from 03/24/2022; however, lymphadenopathy or mass cannot be excluded. Follow-up or CT could further characterize as clinically indicated. Dictated by: Dictated on workstation # [id number]
[2023-03-22 17:33] LABS: ALBUMIN 4.5 GM/DL (3.2-4.5); POTASSIUM 3.7 MMOL/L (3.6-5.0)
[2023-03-22 17:34] LABS: CALCIUM 9.6 MG/DL (8.5-10.1)
[2023-03-22 17:35] LABS: INR 1.1 (0.8-1.4); PROTHROMBIN TIME PATIENT 15.1 SEC (12.2-14.7); TOTAL PROTEIN 8.1 GM/DL (6.4-8.2)
[2023-03-22 17:37] LABS: BILIRUBIN,TOTAL 0.6 MG/DL (0.1-1.0)
[2023-03-22 17:39] LABS: CREATININE SERUM 0.8 MG/DL (0.60-1.30)
[2023-03-22 17:42] LABS: MAGNESIUM 1.8 MG/DL (1.6-2.4)
--- NOTE | 2023-03-22 18:28 | ED General ---
General Chief Complaint: Cardiac/General Problems Stated Complaint: ABNORMAL EKG Nursing Triage Note: SENT OVER FROM [facility] WITH AN ABNORMAL EKG. STATES SHE HAS BEEN LIGHT HEADED X1 MONTH AND HAS LOW OXYGEN LEVELS WHEN SHE STANDS UP. STATES SX ARE WORSE WHEN SHE IS WALKING. Source of Information: Patient Exam Limitations: No Limitations History of Present Illness Date Seen by Provider: March 22, 2023 Time Seen by Provider: 18:10 Initial Comments Patient is a 23-year-old sent over from [facility] walk-in chief complaint of concern for "abnormal EKG". Patient relates a history of for many months feeling increased fatigue, "sleeping all the time" feeling hot and clammy. She feels "lightheaded". There are some nausea and decreased appetite. She has a pulse ox at home and states that she feels like her oxygen levels drop when she stands up. 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 She is awaiting an appointment at . She takes medications for depression and occasi onally allergies and acid reflux on a as needed basis. Daily baby aspirin. she used to smoke marijuana but has stopped. No cigarettes, no daily alcohol. She denies any fevers or chills. No problems with bowel or bladder. She is on her menstrual cycle. She denies pain anywhere. The symptoms have been going on for months and she feels like yesterday she may have "passed out" but she is not sure. Nobody was around to witness. She feels like she did lose a little time. Timing/Duration: Other (Months) Severity: Moderate Modifying Factors: worse with Movement Associated Systoms: Diaphoresis, Malaise, Weakness Allergies and Home Medications Allergies Uncoded Allergies: PSEUDOEPHEDRINE (Adverse Reaction, Intermediate, 06/28/12) CAN NOT HAVE DUE TO HEART RELATED CONDITION Patient Home Medication List Home Medication List Reviewed: Yes Aspirin (Aspirin 81 Mg Chew Tab) 81 Mg Chew, 81 MG PO DAILY, (Reported) Entered as Reported by: HERBIE COOLEY on 05/31/11 1900 Escitalopram Oxalate (Lexapro) 10 Mg Tablet, 10 MG PO DAILY Prescribed by: VICENTE DING on 02/04/22 1358 Discontinued Medications Azithromycin (Azithromycin) 250 Mg Tablet, 250 MG PO UD Discontinued Reason: No Longer Taking Prescribed by: STEPH SOMERS on 03/24/22 1835 Last Action: Discontinued Cefdinir (Cefdinir) 300 Mg Capsule, 300 MG PO BID Discontinued Reason: No Longer Taking Prescribed by: PATRICIA MIRAMONTES on 01/01/18420 Last Action: Discontinued Ketorolac Tromethamine (Ketorolac Tromethamine) 10 Mg Tablet, 10 MG PO Q6H Discontinued Reason: No Longer Taking Prescribed by: PATRICIA MIRAMONTES on 09/23/22 2214 Last Action: Discontinued Methylprednisolone (Medrol) 4 Mg Tab.ds.pk, 4 MG PO UD Discontinued Reason: No Longer Taking Prescribed by: PATRICIA MIRAMONTES on 01/01/18420 Last Action: Discontinued Metronidazole (Metronidazole) 500 Mg Tablet, 500 MG PO BID Discontinued Reason: No Longer Taking Prescribed by: VICENTE DING on 10/16/20 1749 Last Action: Discontinued Naproxen (Naprosyn) 500 Mg Tablet, 500 MG PO BID Discontinued Reason: No Longer Taking Prescribed by: STEPH SOMERS on 03/25/22 0059 Last Action: Discontinued Norgestimate-Ethinyl Estradiol (Mononessa 28 Tablet) 1 Each Tablet, (Reported) Discontinued Reason: No Longer Taking Entered as Reported by: ARTIS ORTIZ on 01/01/18 0258 Last Action: Discontinued Prednisone (Prednisone) 50 Mg Tab, 50 MG PO DAILY Discontinued Reason: No Longer Taking Prescribed by: YONG DONOHUE on 09/28/21 1426 Last Action: Discontinued Review of Systems Review of Systems Constitutional: see HPI EENTM: no symptoms reported Respiratory: short of breath Cardiovascular: no symptoms reported Gastrointestinal: loss of appetite Genitourinary: no symptoms reported Expected Date of Delivery: March 22, 2023 Musculoskeletal: no symptoms reported Skin: other (clammy) Psychiatric/Neurological: Weakness (generalized) Past Nurcmuk-Hkwjmv-Jsucbw Hx Patient Social History Tobacco Use?: No Substance use?: Yes Substance type: Marijuana Alcohol Use?: No Immunizations Up To Date Tetanus Booster (TDap): Less than 5yrs PED Vaccines UTD: Yes Seasonal Allergies Seasonal Allergies: Yes Past Medical History Surgery/Hospitalization HX: GERD, IBS, TET OF FALLOT Surgeries: Yes (CARDIAC SURGERY X 2 FOR REPAIR OF TETRALOGY OF FALLOT INFANT; BMT'S) Cardiac, Ear Surgery Respiratory: No Cardiac: Yes (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) Congenital Heart Disease Neurological: No Expected Date of Delivery: March 22, 2023 Reproductive Disorders: No Genitourinary: No Gastrointestinal: Yes Chronic Constipation, Irritable Bowel Musculoskeletal: No Endocrine: No HEENT: Yes (S/P BMT'S) Chronic Ear Infection Cancer: No Psychosocial: Yes Anxiety, Depression Integumentary: No Blood Disorders: No Family Medical History No Pertinent Family Hx Physical Exam Vital Signs Vital Signs - First Documented 03/22/23 16:55 Temp 36.3 Pulse 84 Resp 16 B/P (MAP) 131/82 (98) Pulse Ox 94 O2 Delivery Room Air Capillary Refill : Less Than 3 Seconds Height, Weight, BMI Height: 5'5.00" Weight: 148lbs. 0.2oz. 67.480003ac; 27.00 BMI Method:Stated General Appearance: No Apparent Distress, WD/WN Eyes: Bilateral Eye Normal Inspection, Bilateral Eye PERRL, Bilateral Eye EOMI HEENT: PERRL/EOMI, Pharynx Normal, Tonsillar Enlargement (no pus) Neck: Normal Inspection, Non Tender, Supple Respiratory: Lungs Clear, Normal Breath Sounds, No Accessory Muscle Use, No Respiratory Distress Cardiovascular: Regular Rate, Rhythm, Normal Peripheral Pulses Gastrointestinal: Normal Bowel Sounds, Soft Extremity: Normal Capillary Refill, Normal Inspection, Normal Range of Motion, Non Tender, No Calf Tenderness, No Pedal Edema Neurologic/Psychiatric: Alert, Oriented x3, No Motor/Sensory Deficits, Normal 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, 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 Norm as Tested Skin: Normal Color, Warm/Dry Progress/Results/Core Measures Suspected Sepsis SIRS Temperature: Pulse: 84 Respiratory Rate: 16 Laboratory Tests 03/22/23 17:10: White Blood Count 7.7 Blood Pressure 131 /82 Mean: 98 Laboratory Tests 03/22/23 17:10: Creatinine 0.80, INR Comment 1.1, Platelet Count 252, Total Bilirubin 0.6 Results/Orders Lab Results Laboratory Tests Test 03/22/23 17:10 Range/Units White Blood Count 7.7 4.3-11.0 10^3/uL Red Blood Count 5.54 H 3.80-5.11 10^6/uL Hemoglobin 13.7 11.5-16.0 g/dL Hematocrit 43 35-52 % Mean Corpuscular Volume 77 L 80-99 fL Mean Corpuscular Hemoglobin 25 25-34 pg Mean Corpuscular Hemoglobin Concent 32 32-36 g/dL Red Cell Distribution Width 14.9 H 10.0-14.5 % Platelet Count 252 130-400 10^3/uL Mean Platelet Volume 9.9 9.0-12.2 fL Immature Granulocyte % (Auto) 0 % Neutrophils (%) (Auto) 69 42-75 % Lymphocytes (%) (Auto) 15 12-44 % Monocytes (%) (Auto) 9 0-12 % Eosinophils (%) (Auto) 5 0-10 % Basophils (%) (Auto) 1 0-10 % Neutrophils # (Auto) 5.3 1.8-7.8 10^3/uL Lymphocytes # (Auto) 1.2 1.0-4.0 10^3/uL Monocytes # (Auto) 0.7 0.0-1.0 10^3/uL Eosinophils # (Auto) 0.4 H 0.0-0.3 10^3/uL Basophils # (Auto) 0.1 0.0-0.1 10^3/uL Immature Granulocyte # (Auto) 0.0 0.0-0.1 10^3/uL Prothrombin Time 15.1 H 12.2-14.7 SEC INR Comment 1.1 0.8-1.4 Activated Partial Thromboplast Time 39 H 24-35 SEC Sodium Level 138 135-145 MMOL/L Potassium Level 3.7 3.6-5.0 MMOL/L Chloride Level 107 98-107 MMOL/L Carbon Dioxide Level 18 L 21-32 MMOL/L Anion Gap 13 5-14 MMOL/L Blood Urea Nitrogen 8 7-18 MG/DL Creatinine 0.80 0.60-1.30 MG/DL Estimat Glomerular Filtration Rate 106 BUN/Creatinine Ratio 10 Glucose Level 101 70-105 MG/DL Calcium Level 9.6 8.5-10.1 MG/DL Corrected Calcium 9.2 8.5-10.1 MG/DL Magnesium Level 1.8 1.6-2.4 MG/DL Total Bilirubin 0.6 0.1-1.0 MG/DL Aspartate Amino Transf (AST/SGOT) 20 5-34 U/L Alanine Aminotransferase (ALT/SGPT) 19 0-55 U/L Alkaline Phosphatase 78 40-136 U/L Myoglobin 17.1 10.0-92.0 NG/ML Troponin I < 0.028 <0.028 NG/ML Total Protein 8.1 6.4-8.2 GM/DL Albumin 4.5 3.2-4.5 GM/DL Thyroid Stimulating Hormone (TSH) 2.45 0.35-4.94 UIU/ML Free Thyroxine 0.92 0.70-1.48 NG/DL My Orders Orders - KYLAH SEXTON MD Free T4 (Free Thyroxine) (03/22/23 18:21) Thyroid Stimulating Hormone (03/22/23 18:21) Triiodothyronine Total T3 (03/22/23 18:21) Urine Bedside (03/22/23 18:23) Vital Signs/I&O 03/22/23 03/22/23 16:55 18:52 Temp 36.3 Pulse 84 78 Resp 16 B/P (MAP) 131/82 (98) 111/78 Pulse Ox 94 92 O2 Delivery Room Air Room Air Capillary Refill : Less Than 3 Seconds Blood Pressure Mean: 98 Progress Note : Time: 18:32 Progress Note Patient seen and evaluated by me. Evaluation today includes physical exam, CBC, chemistry, urinalysis, urine test, chest x-ray and EKG. Pertinent physical exam findings, well-developed well-nourished female in no acute distress. Heart is regular, lungs are clear. Abdomen is soft. No lower extremity edema. Pulse ox noted to be 94% on room air. afebrile, normal BP P atient is a tetralogy of Fallot patient status postrepair followed in [place]. Currently awaiting follow-up with an adult boston cutter. She has no focal neurologic deficits. No complaints of acute illness/infection. Symptoms going on "months". Differential diagnosis includes occult infection, urinary tract infection, , metabolic derangement, dehydration, hypothyroid. Labs independently interpreted by me include CBC which shows total white blood cell count of 7.7, hemoglobin of 13.7 platelets of 252. Chemistry remarkable only for a CO2 of 18. Troponin undetectable. Coags showed PT of 15.1, INR 1.1, PTT of 39. test is negative. thyroid studies pending. EKG compared to prior from September 2022 shows no acute changes. CXR prominent mediastimun. Similar to previous. Patient was ambulated in the department on room air with continuous pulse ox and noted to drop to 90%. This does cause some concern about a cardiac issue that would need follow-up with her boston cutter. Patient will be instructed to call [facility] tomorrow morning to schedule her appointment as soon as possible. She is advised if she continues to be symptomatic and if her pulse ox drops below 90% that she needs to come back to the emergency room. She verbalized understanding of the plan of care. All questions are sought and answered. Patient advised I will call her back if thyroid studies are abnormal. ECG Initial ECG Impression Date: March 22, 2023 Initial ECG Impression Time: 18:15 Initial ECG Rate: 85 Initial ECG Rhythm: Normal Sinus Initial ECG Intervals: Normal Initial ECG Intervals IL 149 QRS 96 QTc 378 Comment normal intervals, no ST change (elevation or depression) no ectopy Diagnostic Imaging Diagonstic Imaging: Xray Plain Films/CT/US/NM/MRI: chest Comments [facility], [place] NAME: EVANS ELIZALDE Tenzin [facility] REC#: [id number] PT STATUS: REG ER : 2000 PHYSICIAN: DAVID GALLO MD ADMIT DATE: 03/22/23/ER Signed Date of Exam:03/22/23 CHEST 1 VIEW, AP/PA ONLY INDICATION: Abnormal EKG. Lightheaded for one month. EXAMINATION: Chest, 03/22/2023. COMPARISON: 09/23/2022. FINDINGS: There is prominence along the mediastinum, more pronounced than on previous imaging. A mass is not excluded. Heart is unremarkable. Pulmonary vasculature is normal. Sternotomy wires are present. No infiltrates, effusions, or pneumothorax. IMPRESSION: 1. Prominence of the mediastinum possibly due to prominent vasculature as seen on the prior CT from 03/24/2022; however, lymphadenopathy or mass cannot be excluded. Follow-up or CT could further characterize as clinically indicated. Dictated by: Dictated on workstation # [id number] Dict: 03/22/231721 Trans: 03/22/23 1747 [id number] Interpreted by: EMETERIO CHAN MD Electronically signed by: EMETERIO CHAN MD 03/22/23 1747 Departure Impression Primary Impression: Fatigue Qualified Codes: R53.83 - Other fatigue Additional Impressions: History of tetralogy of Fallot repair exertional hypoxia Disposition: HOME, SELF-CARE Condition: Stable Departure-Patient Inst. Decision time for Depature: 18:40 Referrals: [facility] (PCP/Family) Primary Care Physician Patient Instructions: Fatigue Add. Discharge Instructions: Please call tomorrow up to [place] to get a follow up with your adult boston cutter, You oxygen does show that you drop when exerting yourself to 90%. Avoid any heavy exertion until you are seen by cardiology and have your new echo. If you develop a fever, worsening symptoms, shortness of breath, chest pain, swelling in your legs, please return to the Emergency Department for re- evaluation. Follow up as well with community clinic. Work/School Note: Work Release Form Date Seen in the Emergency Department: March 22, 2023 Return to Work: March 24, 2023 Copy Copies To 1: BAILEY PATEL KATHRYN M MD March 22, 2023 18:28
[2023-03-22 18:52] VITALS: BP 111/78
[2023-03-22 19:03] LABS: FREE T4 (FREE THYROXINE) 0.92 NG/DL (0.70-1.48)
== END 2023-03-22 18:52 | disposition home or self-care (01) ==
LOC: EDUNIT# 16:44 → ER 16:46
DX: R53.83 Other fatigue (principal); F32.A Depression, unspecified; R09.02 Hypoxemia; Z87.74 Personal history of (corrected) congenital malformations of heart and circulatory system; Z79.899 Other long term (current) drug therapy; Z79.82 Long term (current) use of aspirin
CPT/HCPCS: 36415; 71045; 80053; 83735; 83874; 84439; 84443; 84480; 84484; 84703; 85025; 85610; 85730; 93005; 93041

== ENCOUNTER 2023-09-25 12:48 | Emergency (ER) | payer BC ==
[~2023-09-25] VITALS: Ht 167.7 cm; Wt 79.3 kg
--- NOTE | 2023-09-25 13:20 | ED Respiratory ---
General Chief Complaint: Respiratory Problems Stated Complaint: DIZZINESS | LOW O2 Nursing Triage Note: PT AMB TO RM 2 WITH C/O INCREASED SOB OFF AND ON X2 WEEKS. PT STATES COOL AIR HELPS Source: patient Exam Limitations: no limitations History of Present Illness Date Seen by Provider: Sep 25, 2023 Time Seen by Provider: 13:16 Initial Comments 23-year-old female presents to the emergency department complaining of intermittent episodes of shortness of breath and chest tightness that lasted for few minutes off and on for the past 2 weeks. Patient seems to think cool air triggers this. She reports a history of tetralogy of Fallot she sees cardiology at [facility] in [place] and states they are going to transfer her care to [place]. She states she turns colors but gets flushed and red and sweaty when these happen nailbeds get slightly purple friend states that her lips get pale. No syncope no chest pain no vomiting no cyanosis of the extremities aside from nailbeds intermittently and the symptoms are self- limiting. Currently patient states she just feels worn out but is not short of breath nor does she have chest pain, no abdominal pain or nausea. No recent fever. Timing/Duration: intermittent Severity: moderate Prior Episodes/Possible Cause: occasional episodes Associated Symptoms: cough, shortness of breath Allergies and Home Medications Allergies Uncoded Allergies: PSEUDOEPHEDRINE (Adverse Reaction, Intermediate, 06/28/12) CAN NOT HAVE DUE TO HEART RELATED CONDITION Patient Home Medication List Home Medication List Reviewed: Yes Aspirin (Aspirin 81 Mg Chew Tab) 81 Mg Chew, 81 MG PO DAILY, (Reported) Entered as Reported by: HERBIE COOLEY on 05/31/11 1900 Escitalopram Oxalate (Lexapro) 10 Mg Tablet, 10 MG PO DAILY Prescribed by: VICENTE DING on 02/04/22 1358 Review of Systems Review of Systems Constitutional: no symptoms reported EENTM: no symptoms reported Respiratory: short of breath, wheezing Cardiovascular: chest pain Gastrointestinal: no symptoms reported Genitourinary: no symptoms reported : No Musculoskeletal: no symptoms reported Skin: no symptoms reported Psychiatric/Neurological: No Symptoms Reported Hematologic/Lymphatic: No Symptoms Reported Immunological/Allergic: no symptoms reported All Other Systems Reviewed Negative Unless Noted: Yes Past Mvchwgy-Naxfpa-Bwfwlo Hx Patient Social History Tobacco Use?: No Use of E-Cig and/or Vaping dev: Yes E-Cig or Vaping type used: Other Additional E-Cig or Vaping: DELTA 10 Substance use?: No Alcohol Use?: No Pt feels they are or have been: No Immunizations Up To Date Tetanus Booster (TDap): Less than 5yrs PED Vaccines UTD: Yes Influenza Vaccine Up-to-Date: Yes; Up-to-Date Seasonal Allergies Seasonal Allergies: Yes Past Medical History Surgery/Hospitalization HX: GERD, IBS, TET OF FALLOT HEART SURGERY Surgeries: Yes (CARDIAC SURGERY X 2 FOR REPAIR OF TETRALOGY OF FALLOT INFANT; BMT'S) Cardiac, Ear Surgery Respiratory: No Cardiac: Yes (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) Congenital Heart Disease Neurological: No Last Menstrual Period: Sep 03, 2023 Reproductive Disorders: No Genitourinary: No Gastrointestinal: Yes Chronic Constipation, Irritable Bowel Musculoskeletal: No Endocrine: No HEENT: Yes (S/P BMT'S) Chronic Ear Infection Cancer: No Psychosocial: Yes Anxiety, Depression Integumentary: No Blood Disorders: No Family Medical History No Pertinent Family Hx Physical Exam Vital Signs - First Documented 09/25/23 12:54 Temp 36.1 Pulse 79 Resp 20 B/P (MAP) 116/78 (91) Pulse Ox 94 O2 Delivery Room Air Capillary Refill : Height: 5'5.00" Weight: 148lbs. 0.2oz. 67.126269sb; 28.00 BMI Method:Stated General Appearance: WD/WN, no apparent distress Eyes: Bilateral Eye Normal Inspection HEENT: PERRL/EOMI Neck: non-tender, full range of motion, supple Respiratory: chest non-tender, lungs clear, normal breath sounds, no r espiratory distress Cardiovascular: regular rate, rhythm, no edema Gastrointestinal: non tender, soft Extremities: non-tender, no pedal edema Neurologic/Psychiatric: no motor/sensory deficits, alert, normal mood/affect, oriented x 3 Skin: normal color, warm/dry Progress/Results/Core Measures Suspected Sepsis SIRS Temperature: Pulse: 79 Respiratory Rate: 20 Laboratory Tests 09/25/23 13:35: White Blood Count 8.1 Blood Pressure 116 /78 Mean: 91 Laboratory Tests 09/25/23 13:35: Creatinine 0.76, Platelet Count 191, Total Bilirubin 0.6 Results/Orders Lab Results Laboratory Tests Test 09/25/23 13:35 Range/Units White Blood Count 8.1 4.3-11.0 10^3/uL Red Blood Count 5.08 3.80-5.11 10^6/uL Hemoglobin 12.8 11.5-16.0 g/dL Hematocrit 41 35-52 % Mean Corpuscular Volume 80 80-99 fL Mean Corpuscular Hemoglobin 25 25-34 pg Mean Corpuscular Hemoglobin Concent 32 32-36 g/dL Red Cell Distribution Width 14.0 10.0-14.5 % Platelet Count 191 130-400 10^3/uL Mean Platelet Volume 9.8 9.0-12.2 fL Immature Granulocyte % (Auto) 0 % Neutrophils (%) (Auto) 71 42-75 % Lymphocytes (%) (Auto) 14 12-44 % Monocytes (%) (Auto) 10 0-12 % Eosinophils (%) (Auto) 5 0-10 % Basophils (%) (Auto) 1 0-10 % Neutrophils # (Auto) 5.7 1.8-7.8 10^3/uL Lymphocytes # (Auto) 1.1 1.0-4.0 10^3/uL Monocytes # (Auto) 0.8 0.0-1.0 10^3/uL Eosinophils # (Auto) 0.4 H 0.0-0.3 10^3/uL Basophils # (Auto) 0.1 0.0-0.1 10^3/uL Immature Granulocyte # (Auto) 0.0 0.0-0.1 10^3/uL Sodium Level 137 135-145 MMOL/L Potassium Level 3.8 3.6-5.0 MMOL/L Chloride Level 105 98-107 MMOL/L Carbon Dioxide Level 23 21-32 MMOL/L Anion Gap 9 5-14 MMOL/L Blood Urea Nitrogen 11 7-18 MG/DL Creatinine 0.76 0.60-1.30 MG/DL Estimat Glomerular Filtration Rate 113 BUN/Creatinine Ratio 14 Glucose Level 97 70-105 MG/DL Calcium Level 9.3 8.5-10.1 MG/DL Corrected Calcium 9.1 8.5-10.1 MG/DL Magnesium Level 2.0 1.6-2.4 MG/DL Total Bilirubin 0.6 0.1-1.0 MG/DL Aspartate Amino Transf (AST/SGOT) 19 5-34 U/L Alanine Aminotransferase (ALT/SGPT) 22 0-55 U/L Alkaline Phosphatase 71 40-136 U/L Myoglobin 15.4 10.0-92.0 NG/ML Troponin I < 0.028 <0.028 NG/ML B-Type Natriuretic Peptide < 10.0 <100.0 PG/ML Total Protein 7.6 6.4-8.2 GM/DL Albumin 4.3 3.2-4.5 GM/DL My Orders Orders - DETAR,GOVIND W DO Cbc And Automated Diff (09/25/23 13:13) Magnesium (09/25/23 13:13) Chest 1 View, Ap/Pa Only (09/25/23 13:13) Ekg Tracing (09/25/23 13:13) Comprehensive Metabolic Panel (09/25/23 13:13) Myoglobin Serum (09/25/23 13:13) O2 (09/25/23 13:13) Monitor-Rhythm Ecg Trace Only (09/25/23 13:13) Ed Iv/Invasive Line Start (09/25/23 13:13) Bnp Leon (09/25/23 13:13) Troponin I Terrie (09/25/23 13:13) Vital Signs/I&O 09/25/23 12:54 Temp 36.1 Pulse 79 Resp 20 B/P (MAP) 116/78 (91) Pulse Ox 94 O2 Delivery Room Air Capillary Refill : Blood Pressure Mean: 91 Progress Note : Progress Note Plan to obtain basic labs, EKG and chest x-ray. Will monitor. Patient states she does also suffer from panic attacks except that knowing difference between these episodes lately and her previous panic attacks was getting flushed and turning red. She does admit to not taking her hydroxyzine lately. ECG Initial ECG Impression: Nonspecific Changes Initial ECG Comparisson: Unchanged Diagnostic Imaging Diagonstic Imaging: Xray Plain Films/CT/US/NM/MRI: chest (No acute disease process) Departure Impression Primary Impression: General ill feeling Additional Impression: Dyspnea Qualified Codes: R06.00 - Dyspnea, unspecified Disposition: HOME, SELF-CARE Condition: Stable Departure-Patient Inst. Referrals: [facility] (PCP/Family) Primary Care Physician Patient Instructions: Shortness of Breath, Adult ED Add. Discharge Instructions: Your evaluation for acute pathology in the emergency department is negative. 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 Continue taking your hydroxyzine as needed. Return for concerns or problems. All discharge instructions reviewed with patient and/or family. Voiced understanding. GOVIND WILLIS DO Sep 25, 2023 13:20
[2023-09-25 13:46] LABS: BASOPHILS # (AUTO) 0.1 10^3/uL (0.0-0.1); BASOPHILS % (AUTO) 1 % (0-10); EOSINOPHILS # (AUTO) 0.4 10^3/uL (0.0-0.3); EOSINOPHILS % (AUTO) 5 % (0-10); HEMATOCRIT 41 % (35-52); HEMOGLOBIN 12.8 g/dL (11.5-16.0); LYMPHOCYTES # (AUTO) 1.1 10^3/uL (1.0-4.0); LYMPHOCYTES % (AUTO) 14 % (12-44); MEAN CORPUSCULAR HEMOGLOBIN 25 pg (25-34); MEAN CORPUSCULAR HGB CONC 32 g/dL (32-36); MEAN CORPUSCULAR VOLUME 80 fL (80-99); MEAN PLATELET VOLUME 9.8 fL (9.0-12.2); MONOCYTES # (AUTO) 0.8 10^3/uL (0.0-1.0); MONOCYTES % (AUTO) 10 % (0-12); NEUTROPHILS # (AUTO) 5.7 10^3/uL (1.8-7.8); NEUTROPHILS % (AUTO) 71 % (42-75); PLATELET COUNT 191 10^3/uL (130-400); WHITE BLOOD COUNT 8.1 10^3/uL (4.3-11.0)
--- NOTE | 2023-09-25 13:50 | Diagnostic Imaging Report ---
EXAMINATION: Chest 1 view HISTORY: Shortness of breath. Chest pain. COMPARISON: 03/22/2023. FINDINGS: The lung volumes are normal. No focal consolidation is seen. No large pleural effusion or pneumothorax is seen. The cardiomediastinal silhouette is normal in size and contour. Sternotomy wires are noted. No acute osseous abnormality is seen. IMPRESSION: 1. No acute pleuroparenchymal process. Dictated by: Dictated on workstation # [id number]
[2023-09-25 13:57] LABS: ALBUMIN 4.3 GM/DL (3.2-4.5); CHLORIDE 105 MMOL/L (98-107); POTASSIUM 3.8 MMOL/L (3.6-5.0); SODIUM 137 MMOL/L (135-145)
[2023-09-25 13:58] LABS: CALCIUM 9.3 MG/DL (8.5-10.1)
[2023-09-25 13:59] LABS: GLUCOSE 97 MG/DL (70-105); TOTAL PROTEIN 7.6 GM/DL (6.4-8.2)
[2023-09-25 14:00] LABS: CARBON DIOXIDE 23 MMOL/L (21-32)
[2023-09-25 14:01] LABS: BILIRUBIN,TOTAL 0.6 MG/DL (0.1-1.0)
[2023-09-25 14:03] LABS: ALKALINE PHOSPHATASE 71 U/L (40-136); CREATININE SERUM 0.76 MG/DL (0.60-1.30); GFR ESTIMATED 113
[2023-09-25 14:04] LABS: BUN/CREATININE RATIO 14
[2023-09-25 14:06] LABS: ALANINE AMINOTRANSFERASE 22 U/L (0-55)
[2023-09-25 14:46] VITALS: BP 107/62
== END 2023-09-25 14:48 | disposition home or self-care (01) ==
LOC: EDUNIT# 12:48 → ER 12:49
DX: R06.00 Dyspnea, unspecified (principal); F17.290 Nicotine dependence, other tobacco product, uncomplicated
CPT/HCPCS: 36415; 71045; 80053; 83735; 83874; 83880; 84484; 85025; 93005; 93041